=== PATIENT | male | born 2000 | race Caucasian/White ===

== ENCOUNTER 2023-07-15 15:30 | Outpatient (OUT) | payer OTHER, SELFPAY ==
[2023-07-15 16:01] LABS: Basophils Absolute Auto 0.1 10^3/uL (0.0-0.1); Basophils Percent Auto 1.8 % (0.2-2.0); Eosinophils Absolute Auto 0.9 10^3/uL (0.0-0.7); Eosinophils Percent Auto 14.1 % (0.9-7.0); Hemoglobin 15.8 g/dL (14.0-18.0); Immature Granulocytes Abs Auto 0.02 10^3/uL (0.00-0.03); Immature Granulocytes Pct Auto 0.3 % (0.0-0.5); Lymphocytes Absolute Auto 2.2 10^3/uL (1.2-3.8); Lymphocytes Percent Auto 36.7 % (20.5-60.0); Mean Corpuscular HGB Conc 33.6 g/dL (29.9-35.2); Mean Corpuscular Hemoglobin 30.9 pg (25.9-34.0); Mean Platelet Volume 9.1 fL (9.5-13.5); Monocytes Absolute Auto 0.6 10^3/uL (0.3-0.8); Monocytes Percent Auto 9.7 % (1.7-12.0); Neutrophils Absolute Auto 2.3 10^3/uL (1.4-6.5); Neutrophils Percent Auto 37.4 % (43.0-75.0); Platelet Count 328 10^3/uL (150-450); Red Blood Count 5.11 10^6/uL (4.70-6.10); Red Cell Distribution Width 12.7 % (11.0-15.0); White Blood Count 6.1 10^3/uL (4.0-11.0)
[2023-07-15 16:17] LABS: Alanine Aminotransferase 18 U/L (16-63); Albumin Level 4.1 g/dL (3.4-5.0); Alkaline Phosphatase 67 U/L (46-116); Anion Gap 8.7; Aspartate Amino Transferase 14 U/L (15-37); BUN Creatinine Ratio 14.4; Bilirubin Total 0.4 mg/dL (0.2-1.0); Calcium 9.2 mg/dL (8.5-10.1); Carbon Dioxide 32.5 mmol/L (21.0-32.0); Chloride 104 mmol/L (98-107); Chol HDL Ratio 3.3; Cholesterol 161 mg/dL (<=200); Estimated GFR (African America >60 (>=60); Estimated GFR (Non-African Ame >60 (>=60); Globulin 4.2 g/dL; Glucose 82 mg/dL (74-106); HDL Cholesterol 49 mg/dL (40-60); LDL Cholesterol Calculated 104.2 mg/dL; Potassium 4.2 mmol/L (3.5-5.1); Sodium 141 mmol/L (136-145); Total Protein 8.3 g/dL (6.4-8.2); Triglycerides 39 mg/dL (<=150); VLDL CHOLESTEROL 7.8 mg/dL
[2023-07-17 10:13] LABS: QuantiFERON-TB Gold Plus Negative (Negative)
[2023-07-17 11:14] LABS: HBsAg Screen Negative (Negative); HCV Antibody Non Reactive (Non Reactive)
== END 2023-07-15 15:31 | disposition home or self-care (01) ==
LOC: LAB 15:34
PROVIDERS: PCP Family Medicine; Visit Provider Dermatology
DX: L40.0 Psoriasis vulgaris (principal)
CPT/HCPCS: 36415; 80053; 80061; 85025; 86480; 86803; 87340

== ENCOUNTER 2025-01-21 21:19 | Emergency (ER) | payer OTHER, SELFPAY ==
[2025-01-21] VITALS (16 sets, daily range): BP systolic 106–132; BP diastolic 82–97; PULSE 81–145; TEMP 36.8; O2SAT 97–100; BMI 24.4
--- OUTSIDE RECORDS SUMMARY | 2025-01-21 21:32 | XMS_ITS | CCD ---
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 Name Role Phone AMPARO JOSE Primary Care Physician JEANNE ., DARIEL Attending Unavailable JEANNE ., DARIEL Consulting Unavailable JEANNE ., DARIEL Admitting Unavailable PETZNICK, AMPARO Primary Care Unavailable GOVEA ., DR BOYLE Admitting Unavailable PETZNICK, AMPARO Primary Care Unavailable GOVEA ., DR BOYLE Attending Unavailable GOVEA ., DR BOYLE Consulting Unavailable PETZNICK, AMPARO Primary Care Unavailable GOVEA ., DR BOYLE Attending Unavailable GOVEA ., DR BOYLE Consulting Unavailable GOVEA ., DR BOYLE Admitting Unavailable Petznick Amparo MOHAN Primary Care Provider [phone] Petznick DO, Amparo Primary Care Provider [phone] Tupa DOTamar Emergency Provider Amparo Jose Primary Care Unavailable Tamar Villanueva Attending Unavailable TuTamar ellis Admitting Unavailable PETZNICKAMPARO Attending Unavailable WORKGEM PRITCHARD Attending Unavailable GEM GUERRERO Referring Unavailable PETZNICKAMPARO Attending Unavailable PETZNICKAMPARO Referring Unavailable JEANRICK Attending Unavailable PETZNICK, AMPARO Valle Referring Unavailable PETZNICK, AMPARO Valle Attending Unavailable PETZNICK, AMPARO C Referring Unavailable JeanRick T Admitting Unavailable JeanRick Attending Unavailable JeanRick Referring Unavailable Allergies Allergy Classification Reported Allergen(s) Allergy Type Date of Onset Reaction(s) Facility (1 source) No Known Medication Allergies; Translations: [No Known Medication Allergies] Propensity to adverse reactions (disorder) [facility] Repository Medications Current Medications Medication Drug Class(es) Dates Sig (Normalized) Sig (Original) [id number] 200 actuat albuterol 0.09 mg/actuat metered dose inhaler (20 sources) beta2-Adrenergic Agonist Start: 11-14-2024 End: 08-18-2024 take 2 puff(s) by inhalation every six hours for wheezing albuterol HFA 90 mcg/act inhaler Indications: Mild intermittent asthma without complication (HCC) Inhale 2 puffs every 6 (six) hours if needed for wheezing 18 g 2 08/18/2024 Active Start: 12-13-2022 albuterol HFA 90 mcg/act inhaler Indications: Mild intermittent asthma without complication (CMS/HCC) USE 1 INHALATION EVERY 4 TO 6 HOURS NEEDED 25.5 g 3 12/13/2022 Active End: 04-20-2024 take 1 puff(s) by mouth every four to six hours as needed albuterol HFA 90 mcg/act inhaler INHALE 1 PUFF BY MOUTH EVERY 4 TO 6 HOURS NEEDED for 90 days 04/20/2024 Discontinued (Therapy completed) Albuterol (Eqv-ProAir HFA) 90 mcg/inh inhalation aerosol (9 sources) Start: 07-16-2022 Albuterol (Eqv -ProAir HFA) 90 mcg/inh inhalation aerosol Refill(s) 0 Start Date: 07/16/22 Status: Ordered clobetasol propionate 0.5 mg/ml topical solution (6 sources) Corticosteroid Start: 11-17-2024 clobetasol (Te movate) 0.05 % external solution APPLY TO SCALP EVERY SATURDAY - SATURDAY OFF ON THE WEEKENDS NEEDED FOR FLARES 11/17/2024 Active escitalopram 20 mg oral tablet (11 sources) Serotonin Reuptake Inhibitor Start: 07-16-2022 End: 04-20-2024 escitalopram 20 mg Tab Refills(s) 0 Start Date: 07/16/22 Status: Ordered 1 ml ixekizumab 80 mg/ml auto-injector (20 sources) Interleukin-17A Antagonist Start: 12-25-2023 Taltz 80 MG/ML injection Every 5-6 weeks 12/25/2023 Active Start: 07-16-2022 Taltz Autoinje ctor 80 mg/mL subcutaneous solution Refills(s) 0 Start Date: 07/16/22 Status: Ordered End: 04-20-2024 inject 1 mL by subcutaneous injection every other week Ixekizumab (Taltz) 80 MG/ML injection 1 ml Subcutaneous every 2 weeks 04/20/2024 Discontinued (Therapy completed) predniSONE 20 mg oral tablet (3 sources) Start: 04-20-2024 End: 04-29-2024 take 2 tablets by mouth once daily, then take 1 tablet by mouth once daily, then take 0.5 tablet by mouth once daily predniSONE (Deltasone) 20 MG tablet Indications: Left flank pain , Thoracic back pain, unspecified back pain laterality, unspecified chronicity Take 2 tablets (40 mg) by mouth Daily for 3 days, THEN 1 tablet (20 mg) Daily for 3 days, THEN 0.5 tablets (10 mg) Daily for 4 days. 11 tablet 04/20/2024 04/29/2024 Active testosterone cypionate 200 mg/mL IM Patricia (9 sources) Start: 12-19-2022 testosterone c ypionate 200 mg/mL IM Patricia 350 mg, IntraMuscular, q4wk, # 10 mL, Refills(s) 3, Pharmacy: [facility]/pharmacy #[id number], 178, cm, 11/09/22 8:20:00 EDT, Height/Length Dosing, 81.2, kg, 11/09/22 8:20:00 EDT, Weight Dosing Start Date: 12/19/22 Status: Ordered Start: 07-16-2022 testosterone c ypionate 200 mg/mL IM Patricia 300 mg, IntraMuscular, q4wk, # 10 mL, Refills(s) 3, Pharmacy: [facility]/pharmacy #[id number], 178, cm, 07/16/22 11:30:00 EST, Height/Length Dosing, 82, kg, 07/16/22 11:30:00 EST, Weight Dosing Start Date: 07/16/22 Status: Ordered Completed/Discontinued Medications Medication Drug Class(es) Dates Sig (Normalized) Sig (Original) dexamethasone 6 mg oral tablet (2 sources) Corticosteroid Start: 06-04-2022 End: 04-20-2024 dexAMETHasone (Decadron) 6 MG tablet 1 (one) time each day at the same time 06/04/2022 04/20/2024 Discontinued (Therapy completed) hyoscyamine sulfate 0.125 mg sublingual tablet (8 sources) Start: 08-21-2024 take 1 tablet under the tongue three times daily Hyoscyamine Sulfate 0.125 mg tablet, sublingual Active 0.125 MG SUBLINGUAL Three times daily August 21, 2024 1:00am Start: 08-18-2024 End: 12-08-2024 take 1 tablet by mouth three times daily as needed for diarrhea hyoscyamine (Levsin) 0.125 MG SL tablet Indications: Diarrhea of presumed infectious origin TAKE 1 TABLET (125 MCG) BY MOUTH 3 (THREE) TIMES A DAY NEEDED FOR CRAMPING OR DIARRHEA 90 tablet 08/25/2024 12/08/2024 Discontinued (Therapy completed) ondansetron 4 mg disintegrating oral tablet (3 sources) Serotonin-3 Receptor Antagonist Start: 08-21-2024 End: 12-08-2024 ondansetron ODT (Zofran-ODT) 4 MG disintegrating tablet every 6 to 8 hours as needed for Nausea 08/21/2024 12/08/2024 Discontinued (Therapy completed) tadalafil 10 mg oral tablet (9 sources) Phosphodiesterase 5 Inhibitor Start: 11-09-2022 Cialis 10 mg Tab 10 mg = 1 tab(s), Oral, As Directed, PRN for erectile dysfunction, Take 1 tab by mouth one to two hours prior to sexual activity. Do NOT exceed 20 mg in 24 hours., # 30 tab(s), Refills(s) 3, Pharmacy: [facility]/pharmacy #[id number], 178, cm, 11/09/22 8:20:00 EDT, Height/Length Dosing, 81.2, kg, 11/09/22 8:20:00 EDT, Weight Dosing Start Date: 11/09/22 Status: Ordered Start: 07-16-2022 take 1 tablet by rodolfo th every two hours Cialis 5 mg oral tablet See Instructions, Take 1 tab by mouth 2 hours prior to sexual activity., # 15 tab(s), Refills(s) 3, Pharmacy: [facility]/pharmacy #[id number], 178, cm, 07/16/22 11:30:00 EST, Height/Length Dosing, 82, kg, 07/16/22 11:30:00 EST, Weight Dosing Start Date: 07/16/22 Status: Ordered tiZANidine 2 mg oral tablet (6 sources) Central alpha-2 Adrenergic Agonist Start: 04-20-2024 End: 08-18-2024 take 1 tablet by mouth at bedtime tiZANidine (Zanaflex) 2 MG tablet Indications: Left flank pain , Thoracic back pain, unspecified back pain laterality, unspecified chronicity TAKE 1 TABLET BY MOUTH AT BEDTIME 90 tablet 1 05/13/2024 08/18/2024 Discontinued (Therapy completed) Problems Active Problems Problem Classification Problem Date Documented Da te Episodic/Chronic Abdominal pain (2 sources) Left flank pain; Translations: [Unspecified abdominal pain] 04-20-2024 Episodic Anxiety disorders (20 sources) Anxiety; Translations: [Anxiety disorder, unspecified] Onset: 4 07-16-2022 Chronic Asthma (20 sources) Asthma; Translations: [Mild intermittent asthma] Onset: 4 07-16-2022 Chronic Esophageal disorders (16 sources) Gastroesophageal reflux disease; Translations: [Gastro-esophageal reflux disease without esophagitis] Onset: 4 04-20-2024 Chronic Gastrointestinal hemorrhage (1 source) Melena; Translations: [MELENA] Onset: 3 Episodic Immunity disorders (18 sources) Immunosuppression; Translations: [Immunodeficiency, unspecified] Onset: 4 04-20-2024 Chronic Nausea and vomiting (11 sources) Vomiting; Translations: [Vomiting, unspecified] Onset: 5 08-21-2024 Episodic Other aftercare (1 source) Other intermediate accountant (current) drug therapy; Translations: [OTH NURSING HOME CURRENT DRUG THERAPY] Onset: 3 Episodic Other endocrine disorders (7 sources) Testicular hypofunction; Translations: [Testicular hypofunction] Onset: 3 Chronic Other endocrine disorders (9 sources) Male hypogonadism 07-16-2022 Chronic Other endocrine disorders (4 sources) Testicular hypofunction; Translations: [TESTICULAR HYPOFUNCTION] Onset: 3 Chronic Other gastrointestinal disorders (2 sources) Diarrhea of presumed infectious origin; Translations: [Diarrhea, unspecified] 08-18-2024 Episodic Other gastrointestinal disorders (10 sources) Diarrhea; Translations: [Diarrhea, unspecified] Onset: 5 08-21-2024 Episodic Other inflammatory condition of skin (18 sources) Scalp psoriasis; Translations: [Psoriasis, unspecified] Onset: 4 04-20-2024 Chronic Other lower respiratory disease (2 sources) Cough; Translations: [Cough, unspecified type] 08-18-2024 Episodic Other male genital disorders (11 sources) Induratio penis plastica; Translations: [Induration penis plastica] Onset: 3 Chronic Other male genital disorders (20 sources) Male erectile dysfunction, unspecified; Translations: [Erectile dysfunction] Onset: 3 Chronic Other non-traumatic joint disorders (4 sources) Effusion of right knee joint; Translations: [Effusion, right knee] 12-08-2024 Episodic Other non-traumatic joint disorders (6 sources) Pain in right knee; Translations: [Pain in joint, lower leg] 12-08-2024 Episodic Other upper respiratory disease (4 sources) Epistaxis; Translations: [EPISTAXIS] Onset: 3 Episodic Spondylosis; intervertebral disc disorders; other back problems (2 sources) Thoracic back pain; Translations: [Pain in thoracic spine] 04-20-2024 Episodic Sprains and strains (6 sources) Sprain of right knee; Translations: [Sprain of unspecified site of right knee, initial encounter] 12-02-2024 Episodic Past or Other Problems Problem Classification Problem Date Documented Da te Episodic/Chronic Blindness and vision defects (16 sources) Bilateral myopia of eyes; Translations: [Myopia, bilateral] Onset: 04-20-2024 04-20-2024 Episodic Unclassified (2 sources) Acute pain of right knee 12-08-2024 Results Test Name Value Interpretation Reference Range Facility Main OR Intraoperative Recor don 01-19-2025 Main OR Intraoperative Record Main OR Intraoperative Record IntraOp Document Type FT Summary Primary Physician: Rick Jean DO Finalized Date/Time: 01/19/25 11:14:13 Pt. Name: LUX VALLE/Sex: 2000 Male Med Rec #: [id number] Physician: Rick Jean DO Financial #: [id number] Pt. Type: O Room/Bed: Admit/Disch: 01/18/25 08:02:56 - 01/18/25 15:10:50 Institution: Case Times FT Entry 1 Patient Times In Room 01/18/25 10:43:00 Out Room 01/18/25 12:40:00 Procedure Times Start 01/18/25 11:16:00 Stop 01/18/25 12:32:00 Anesthesia Times Start 01/18/25 10:43:00 Stop 01/18/25 12:40:00 Block Timeout w01/18/25 10:30:00 Anesthesia Last Modified By: Kendell GREGORY, Brittany Bennett 01/18/25 12:40:16 General Comments: right adductor canal block by dr dixon, assisted by ana rudd, internal audit senior manager/sa. heart rate 66, spo2 99% on 2lpm o2 via nasal cannula. lupillo morales Case Attendance FT Entry 1 Entry 2 Entry 3 Case Attendee Ramirez LOSS PREVENTION LEAD, Kike Jean DO, Rick Rdz RN, Brittany Bennett Role Performed LOSS PREVENTION LEAD Surgeon - Primary Game Programmer - Primary Time In 01/18/25 10:43:00 01/18/25 11:14:00 01/18/25 10:43:00 Time Out 01/18/25 12:40:00 01/18/25 12:17:00 01/18/25 12:40:00 Procedure KNEE ARTHROSCOPY W/ ACL KNEE ARTHROSCOPY W/ ACL KNEE ARTHROSCOPY W/ ACL REPAIR(Right) REPAIR(Right) REPAIR(Right) Comments DR DIXON SUPERVISING jozef macedo pa-c, out of room for lunch also scrubbed in at at [phone] -[id number] field Last Modified By: Kendell RN, Brittany Rdz RN, Brittany Rdz RN, Brittany Bennett 01/18/25 13:01:48 01/18/25 13:01:48 01/18/25 13:01:48 Entry 4 Entry 5 Entry 6 Case Attendee Tiny SALES MARKETING, Ana Nguyen CST, Carola Lozano Role Performed SALES MARKETING/SA Scrub - Primary Staff - Other Time In 01/18/25 10:43:00 01/18/25 10:43:00 01/18/25 10:43:00 Time Out 01/18/25 12:40:00 01/18/25 12:18:00 01/18/25 12:40:00 Procedure KNEE ARTHROSCOPY W/ ACL KNEE ARTHROSCOPY W/ ACL KNEE ARTHROSCOPY W/ ACL REPAIR(Right) REPAIR(Right) REPAIR(Right) Comments 2ND SCRUB Last Modified By: Kendell RN, Brittany Rdz RN, Brittany Rdz RN, Brittany Bennett 01/18/25 13:01:48 01/18/25 13:01:48 01/18/25 13:01:48 Entry 7 Case Attendee Ken Alfred Ii Role Performed Game Programmer - Relief Time In 01/18/25 11:42:00 Time Out 01/18/25 12:20:00 Procedure KNEE ARTHROSCOPY W/ ACL REPAIR(Right) Comments lunch relief Last Modified By: Brittany Rdz RN 01/18/25 13:01:48 Perioperative Protocols FT Pre-Care Text: Implements protective measures prior to operative or invasive procedure, confirms identity before the operative or invasive procedure, verifies operative procedure, surgical site, and laterality Entry 1 Procedure(s) KNEE ARTHROSCOPY W/ ACL Patient Identity Birthday, ID Band REPAIR(Right) Verified (select at Check, Patient least 2): Participation Consents / H and P Anesthesia Consent, Operative Site Present Verified H&P, Surgery/Procedure Marking Verified Consent Surgical Site Yes Laterality Verified Yes Verified Procedure Verified Yes Correct Patient Yes Position Verified Availability Equipment, Implant, Prep Dry Yes Verified (If Medication Applicable) PreOp Antibiotic Yes Time Out Kike Guzmán CRNA, Given Participants Rick Jean DO, Crosby RN, Tiny Sood SALES MARKETING, Patrick Briones CST, Yamil Ojeda Laura C Time Out Complete 01/18/25 11:14:00 Outcomes Met? Yes Last Modified By: Brittany Rdz RN 01/18/25 11:24:19 Post-Care Text: The patient is free from signs and symptoms of injury caused by extraneous objects Allergy Information FT Pre-Care Text: Verifies allergies Entry 1 Allergies Reviewed? Yes Allergies Reviewed Self/Patient With Outcomes Met? Yes Last Modified By: Brittany Rdz RN 01/18/25 10:18:55 Post-Care Text: The patient received appropriate medication(s) safely administered during the perioperative period Surgical Procedures FT Entry 1 Procedure Description Procedure KNEE ARTHROSCOPY W/ ACL Modifiers Right REPAIR Surgeon Description RIGHT KNEE ARTHROSCOPY WITH ACL RECONSTRUCTION WITH AUTOGRAFT Primary Procedure Yes Primary Surgeon Rick Jean DO Start 01/18/25 11:16:00 Stop 01/18/25 12:32:00 Anesthesia Type General Surgical Service Orthopedics Wound Class 1 - Clean Last Modified By: Brittany Rdz RN 01/18/25 13:01:54 General Case Data FT Pre-Care Text: Classifies surgical wound, implements aseptic technique, initiates traffic control Entry 1 Case Information OR OR 5 FT Case Level Level 4 Wound Class 1 - Clean Specialty Orthopedics ASA Class 2 Preop Diagnosis RIGHT KNEE ACL TEAR Postop Same As Preop Yes Postop Diagnosis RIGHT KNEE ACL TEAR Outcomes Met? Yes Last Modified By: Brittany Rdz RN 01/18/25 11:31:48 Post-Care Text: The patient is free from signs and symptoms of infection Skin Assessment (Pre Procedure) FT Pre-Care Text: Implements protective measures to prevent skin/ tissue injury due to thermal or m (more content not included)... 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 Discharge Activity Ambulate as tolerated, Arrange for a responsible adult supervision for 24 hours, Expect mild pain, Expect minimal amount of drainage and/or bleeding, Partial weight bearing, Do not lift more than 5 lbs Discharge Restrictions No driving, Do not operate machinery or tools, Do not make important decisions for 24 hours, Do not drink alcoholic beverages for 24 hours Discharge Diet(s) Regular, Drink liquids and eat a light meal Call Your Doctor For Persistent or heavy bleeding, Temperature above 101.5 degrees, Redness, swelling, or pus at operative site, Severe pain at the operative site, Persistent vomiting Wound Care Keep incision dry, Remove dressing as instructed Discharge Instructions Discharge Instructions New Follow Up Appointments after Discharge Follow Up with MATTHEW De Jesus When: 01/29/2025 09:00 AM EDT Comments: Keep scheduled appointment Where: [address] [place] [id number] [facility] (1) Medications What How Much When Why Instructions Next Dose New acetaminophen-oxycod one (Percocet 5 mg-325 mg oral tablet) See instructions ACL injury tear Take one to two oral every 4 hours as needed for surgical pain. Pickup at [facility]/pharmacy #[id number] New aspirin (aspirin 325 mg Tab) 1 Tablets By Mouth Every day Duration: 30 Days Start the day after surgery for blood clot prevention. Pickup at [facility]/pharmacy #[id number] Unchanged albuterol (Albuterol (Eqv-ProAir HFA) 90 mcg/ inh inhalation aerosol) 2 Inhalation Inhalation Every 6 hours Unchanged clobetasol topical (clobetasol Top 0.05% Foam) 1 Application Topical 2 times a day psoriasis Unchanged ixekizumab (Taltz Autoinjector 80 mg/ mL subcutaneous solution) 80 Milligram Subcutaneous Every 4 weeks psoriasis Unchanged tadalafil (Cialis 10 mg Tab) 1 Tablets By Mouth As Directed as needed for for erectile dysfunction Take 1 tab by mouth one to two hours prior to sexual activity. Do NOT exceed 20 mg in 24 hours. Pharmacy Information [facility]/pharmacy #[id number]: [address], [place] [phone] Allergies No Known Medication Allergies Education Materials [place], [place] [facility] DISCHARGE INSTRUCTIONS: ANTERIOR CRUCIATE LIGAMENT GRAFT MEDICATIONS You will be given a prescription for pain medication. This should be taken as needed and try to take this with food. Pain medication can cause nausea, constipation, diarrhea, and restlessness and should only be used as needed. When you are able to tolerate Tylenol, this should be used instead. Take Enteric Coated Aspirin 325 mg once daily for three weeks for blood clot prevention if you are over 21 years of age. WOUND CARE Please keep dressing on for two days. Do not soak in the tub or otherwise submerge the incision until vidal are removed. Any increase in pain, temperature or redness should be promptly reported to the office. Reinforce dressing as needed. ACTIVITY You will be given a protocol of the Cruciate Ligament Reconstruction Program and therapy and this should be followed. Physical Therapy will advise you when it is safe to begin walking with crutches, generally this is performed after you obtain good leg strength, unless a meniscus repair has been performed as well. DIET You may begin to progress your regular home diet as tolerated. You should continue to increase fluids for the first two to three days after surgery. ANESTHESIA PRECAUTIONS You should not operate a vehicle (automobile, bicycle, motorcycle), machinery or power tools, make any important decisions or drink alcoholic beverages for 24 hours. You should not consume alcoholic beverages within 12 hours of using you pain medication. DRIVING Driving is legal. But if you are involved in an accident, you must be able to prove that you maintained full control of your vehicle. For this reason, it is advised that you do not drive until your strength returns. Similarly, all sports activities are discouraged, at least until your first p (more content not included)... 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 Refills: 0. aspirin (aspirin 325 mg Tab) 1 Tablets By Mouth every day for 30 Days. Start the day after surgery for blood clot prevention.. Refills: 0. Medications to Continue with No Changes Other Medications albuterol (Albuterol (Eqv-ProAir HFA) 90 mcg/inh inhalation aerosol) 2 Inhalation Inhalation every 6 hours. clobetasol topical (clobetasol Top 0.05% Foam) 1 Application Topical 2 times a day. psoriasis. ixekizumab (Taltz Autoinjector 80 mg/mL subcutaneous solution) 80 Milligram Subcutaneous every 4 weeks. psoriasis. tadalafil (Cialis 10 mg Tab) 1 Tablets By Mouth As Directed as needed for erectile dysfunction. Take 1 tab by mouth one to two hours prior to sexual activity. Do NOT exceed 20 mg in 24 hours.. Refills: 3. Comment: Kierra [facility] Main OR PACU I Recordon Main OR PACU I Record Main OR PACU I Record PACU Phase I Document Type FT Summary Primary Physician: Rick Jean DO Finalized Date/Time: 01/18/25 14:04:29 Pt. Name: LUX VALLE/Sex: 2000 Male Med Rec #: [id number] Physician: Rick Jean DO Financial #: [id number] Pt. Type: O Room/Bed: [facility] Admit/Disch: 01/18/25 08:02:56 - Institution: Case Times PACU I FT Pre-Care Text: Identifies barriers to communication and implements measures to provide psychological support Develops individualized plan of care, and ensures continuity of care Maintains patient's dignity and privacy, and maintains patient confidentiality Identifies and reports philosophical, cultural, and spiritual beliefs and values Identifies individual values and wishes concerning care Implements aseptic technique, and administers prescribed antibiotic therapy and immunizing agents as ordered Evaluates postoperative tissue perfusion Implements thermoregulation measures, and monitors body temperature Evaluates postoperative respiratory status Evaluates postoperative cardiac status Evaluates postoperative neurological status Assesses pain control, collaborated in initiating patient-controlled analgesia and implements alternative methods of pain control Verifies allergies, administers prescribed medications and solutions, evaluates response to medications Entry 1 In PACU I 01/18/25 12:42:00 Discharge from PACU 01/18/25 13:42:00 I Outcomes Met? Yes Last Modified By: Stephany Woody RN 01/18/25 14:04:15 Post-Care Text: The patient demonstrates knowledge of the expected response to the operative or invasive procedure The patient's care is consistent with the individualized perioperative plan of care The patient's right to privacy is maintained The patient's value system, lifestyle, ethnicity, and culture are considered, respected, and incorporated into the perioperative plan of care The patient participates in decisions affecting his or her perioperative plan of care The patient is free from signs and symptoms of infection The patient has wound/tissue perfusion consistent with or improved from baseline levels established preoperatively The patient is at or returning to normothermia at the conclusion of the immediate postoperative period The patient's respiratory function is consistent with or improved from baseline levels established preoperatively The patient's cardiovascular status is consistent with or improved from baseline levels established preoperatively The patient's cardiovascular status is consistent with or improved from baseline levels established preoperatively The patient demonstrates and/or reports adequate pain control throughout the perioperative period The patient received appropriate medication(s), safely administered during the perioperative period Acuity Level PACU I FT Entry 1 Start Time 01/18/25 12:42:00 Stop Time 01/18/25 13:42:00 Acuity Level Acuity Level I Last Modified By: Stephany Woody RN 01/18/25 14:04:27 Finalized By: Stephany Woody RN Document Signatures Signed By: Stephany Woody RN 01/18/25 14:04 Normal [facility] Main OR PACU II Recordon Main OR PACU II Record Main OR PACU II Record PACU Phase II Document Type FT Summary Primary Physician: Rick Jean DO Finalized Date/Time: 01/18/25 15:11:34 Pt. Name: LUX VALLE/Sex: 2000 Male Med Rec #: [id number] Physician: Rick Jean DO Financial #: [id number] Pt. Type: O Room/Bed: Admit/Disch: 01/18/25 08:02:56 - 01/18/25 15:10:50 Institution: Case Times PACU II FT Pre-Care Text: Identifies barriers to communication and implements measures to provide psychological support and determines knowledge level Develops individualized plan of care, and ensures continuity of care Maintains patient's dignity and privacy, and maintains patient confidentiality Identifies and reports philosophical, cultural, and spiritual beliefs and values Identifies individual values and wishes concerning care administers prescribed antibiotic therapy and immunizing agents as ordered, Evaluates postoperative tissue perfusion Implements thermoregulation measures, and monitors body temperature Evaluates postoperative respiratory status Evaluates postoperative cardiac status Evaluates postoperative neurological status Assesses pain control, collaborated in initiating patient-controlled analgesia and implements alternative methods of pain control Verifies allergies, administers prescribed medications and solutions, evaluates response to medications Entry 1 In PACU II 01/18/25 13:50:00 Discharge from PACU 01/18/25 15:10:00 II Outcomes Met? Yes Last Modified By: Zeynep Tellez RN 01/18/25 15:11:33 Post-Care Text: The patient demonstrates knowledge of the expected response to the operative or invasive procedure The patient's care is consistent with the individualized perioperative plan of care The patient's right to privacy is maintained The patient's value system, lifestyle, ethnicity, and culture are considered, respected, and incorporated into the perioperative plan of care The patient participates in decisions affecting his or her perioperative plan of care. The patient is free from signs and symptoms of infection The patient has wound/tissue perfusion consistent with or improved from baseline levels established preoperatively The patient is at or returning to normothermia at the conclusion of the immediate postoperative period The patient's respiratory function is consistent with or improved from baseline levels established preoperatively The patient's cardiovascular status is consistent with or improved from baseline levels established preoperatively The patient's neurological status is consistent with or improved from baseline levels established preoperatively The patient demonstrates and/or reports adequate pain control throughout the perioperative period The patient received appropriate medication(s), safely administered during the perioperative period Finalized By: Zeynep Tellez RN Document Signatures Signed By: Zeynep Tellez RN 01/18/25 15:11 Normal [facility] Main OR Preoperative Recordo n 01-18-2025 Main OR Preoperative Record Main OR Preoperative Record PreOp Document Type FT Summary Primary Physician: Rick Jean DO Finalized Date/Time: 01/18/25 11:33:13 Pt. Name: LUX VALLE/Sex: 2000 Male Med Rec #: [id number] Physician: Rick Jean DO Financial #: [id number] Pt. Type: O Room/Bed: Admit/Disch: 01/18/25 08:02:56 - Institution: Case Times PreOp FT Pre-Care Text: Verifies consent for planned procedure, identifies individual values and wishes concerning care, includes family members in perioperative teaching Entry 1 Patient Times. In Pre Surgery 01/18/25 08:15:00 Out Pre Surgery 01/18/25 10:29:00 Outcomes Met? Yes Last Modified By: Brittany Rdz RN 01/18/25 11:33:12 Post-Care Text: The patient participates in decisions affecting his or her perioperative plan of care Finalized By: Brittany Rdz RN Document Signatures Signed By: Brittany Rdz RN 01/18/25 11:33 Normal [facility] Operative Reporton Operative Report Operative Report Patient: LUX VALLE Age: 24 years Sex: Male : 2000 Associated Diagnoses: None Author: Rick Jean DO Health Status Allergies: Allergic Reactions (Selected) No Known Medication Allergies Impression and Plan Diagnosis Pre-op dx-rt knee acl tear Post-op dx-same Procedure-rt knee auto b-pt-b acl reconstruction Anesthesia-gen block EBL-0 TT-see nn To Recovery Room in stable and satisfactory condition.. 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 LUX VALLE has been given the following list of follow-up instructions, prescriptions, and patient education materials: PATIENT FOLLOW-UP INFORMATION Diet: Regular, Drink liquids and eat a light meal Discharge Activity: Ambulate as tolerated, Arrange for a responsible adult supervision for 24 hours, Expect mild pain, Expect minimal amount of drainage and/or bleeding, Partial weight bearing, Do not lift more than 5 lbs Discharge Restrictions: No driving, Do not operate machinery or tools, Do not make important decisions for 24 hours, Do not drink alcoholic beverages for 24 hours Call Your Doctor For: Persistent or heavy bleeding, Temperature above 101.5 degrees, Redness, swelling, or pus at operative site, Severe pain at the operative site, Persistent vomiting Wound Care Instructions: Keep incision dry, Remove dressing as instructed Additional Instructions: 50% partial weight with brace on until follow up mappt. IF UNABLE TO CONTACT YOUR PHYSICIAN AND YOU FEEL IT IS AN EMERGENCY, GO TO THE NEAREST EMERGENCY ROOM OR CALL 911 IEDELMIRA DAWSON P, have received the attached patient education materials/instructio ns and have verbalized understanding: May we do a follow up call? Yes No I was present when discharge instructions were given Patient Signature Date Clinican/Nurse Signature Date Follow up: With: Address: When: Rick Jean [address] [place] [address] Business (1) Comments: Keep scheduled appointment Pharmacy Information: You may receive a survey from Jovani Coffey asking you to rate your care experience. Your feedback is important and will help us understand what we do well and how we can improve the quality of care we provide to you, your loved ones and our community. It???s an honor to serve you. Thank you for choosing [facility] HERE ARE THE MEDICATION CHANGES THAT OCCURRED DURING YOUR HOSPITAL STAY New Medications [id number], [address], [place] [id number], [phone] acetaminophen-oxycod one (Percocet 5 mg-325 mg oral tablet) Take one to two oral every 4 hours as needed for surgical pain.. Refills: 0. aspirin (aspirin 325 mg Tab) 1 Tablets By Mouth every day for 30 Days. Start the day after surgery for blood clot prevention.. Refills: 0. Medications to Continue with No Changes Other Medications albuterol (Albuterol (Eqv-ProAir HFA) 90 mcg/inh inhalation aerosol) 2 Inhalation Inhalation every 6 hours. clobetasol topical (clobetasol Top 0.05% Foam) 1 Application Topical 2 times a day. psoriasis. ixekizumab (Taltz Autoinjector 80 mg/mL subcutaneous solution) 80 Milligram Subcutaneous every 4 weeks. psoriasis. tadalafil (Cialis 10 mg Tab) 1 Tablets By Mouth As Directed as needed for erectile dysfunction. Take 1 tab by mouth one to two hours prior to sexual activity. Do NOT exceed 20 mg in 24 hours.. Refills: 3. PATIENT EDUCATION INFORMATION Instructions: [place], [place] [facility] DISCHARGE INSTRUCTIONS: ANTERIOR CRUCIATE LIGAMENT GRAFT MEDICATIONS You will be given a prescription for pain medication. This should be taken as needed and try to take this with food. Pain medication can cause nausea, constipation, diarrhea, and restlessness and should only be used as needed. When you are able to tolerate Tylenol, this should be used instead. Take Enteric Coated Aspirin 325 mg once daily for three weeks for blood clot prevention if you are over 21 years of age. WOUND CARE Please keep dressing on for two days. Do not soak in the tub or otherwise submerge the incision until vidal are removed. Any increase in pain, temperature or redness should be promptly reported to the office. Reinforce dressing as needed. ACTIVITY You will be given a protocol of the Cruciate Ligament Reconstruction Program and therapy and this should be followed. Physical Therapy will advise you when it is safe to begin walking with crutches, generally this is performed after you obtain good leg strength, unless a meniscus repair has been performed as well. DIET You may begin to progress your regular home diet as tolerated. You should continue to increase fluids for the first two to three days after (more content not included)... Normal [facility] Proceduralon 01-18-2025 Procedural Procedural Patient: LUX VALLE Age: 24 years Sex: Male : 2000 Associated Diagnoses: None Author: Brent Dixon MD Procedure Nerve Block Block Type: Adductor canal block. Laterality: Right. Informed consent for anesthesia management: Anesthesia options discussed including nerve block, Description of the procedure, risks, benefits, and alternatives was provided, The patient's questions were addressed. Time out: Confirmed correct patient, procedure and site. Time: Date/Time 11/19/2023 10:40:00. Indication: Block for postoperative pain management as requested by surgeon. Anesthesia Method: IV Sedation with monitored anesthesia care, The patient remained awake and able to interact in a meaningful way throughout the procedure. Preparation: The patient was placed in the following position Supine, Continuous pulse oximetry applied, Using maximal sterile barrier technique per current [facility] guidelines including hand hygeine, Guidance (Ultrasound used to identify anatomical landmarks, Using sterile gel and probe covers, Permanent image retained), The site was prepped with ChloraPrep. Procedure: Anesthetic Agent skin/SQ 3cc 2% lido; 21g 100 mm block needle w/ US; 20cc .5% Ropivicaine w/ epi 5mcg/cc in increments; low pressure injection; needle tip visualized throughout, Needle was inserted without pain or parasthesia in the conscious patient, Number of attempts 1, Negative attempt at aspiration for blood, Medial and lateral spread of the anesthestic was observed, Periodic negative attempts at aspiration of blood were made as the local was injected, No pain or parathesia were elicited with injection of the anesthetic in the conscious patient, It was idetified that the correct anesthetic agent was administered to the correct site. Complications: None, The patient tolerated the procedure as expected. [facility] Procedural Procedural Patient: LUX VALLE [facility]: [id number] Age: 24 years Sex: Male : 2000 Associated Diagnoses: None Author: Brent Dixon MD Preoperative Information Anesthesia Preop Info: Time patient last ate or drank 01/18/2025 00:00:00. Anesthesia history: Patient history. Family history+: None. Informed consent: Signed by patient. Including risks, benefits, and alternatives related to the: Anesthetic plan, Postoperative pain management plan. Re-evaluation prior to induction: Brent Dixon MD. Review of Systems Eye Ear/Nose/Mouth/Throa t Respiratory: No shortness of breath, No cough, No wheezing. Cardiovascular: Negative, No chest pain. Gastrointestinal: No heartburn. Musculoskeletal Neurologic Health Status Allergies: Allergic Reactions (Selected) No Known Medication Allergies, Allergies (1) Active Severity Reaction No Known Medication Allergies None Documented Current medications: (Selected) Inpatient Medications Ordered Ecotrin 325 mg Tab-EC: 325 mg = 1 tab(s), Tab-EC, Oral, Daily, Routine, Start date 01/19/25 9:00:00 EDT Lactated Ringers IV Patricia 1000 mL 1,000 mL: 1,000 mL, IV, 125 mL/hr, Routine, Start date 01/18/25 9:45:00 EDT, 8 hour(s), Total volume (mL): 1,000, 78.8 kg, 1.98, m2 Lactated Ringers IV Patricia 1000 mL 1,000 mL: 1,000 mL, IV, 150 mL/hr, Routine, Start date 01/18/25 8:15:00 EDT, 6.7 hour(s), Total volume (mL): 1,000 Zofran 4 mg/2 mL Injection: 4 mg = 2 mL, Injection, IV Push, q4hr PRN Nausea/Vomiting, Routine, Start date 01/18/25 9:45:00 EDT, 01/18/25 9:45:00 EDT acetaminophen-oxycod one 325 mg-5 mg Tab: 1 tab(s), Tab, Oral, q6hr PRN Pain 4-7 for 5 day(s), Stop date 01/23/25 9:44:00 EDT, Routine, Start date 01/18/25 9:45:00 EDT acetaminophen-oxycod one 325 mg-5 mg Tab: 2 tab(s), Tab, Oral, q6hr PRN Pain 4-7 for 5 day(s), Stop date 01/23/25 9:44:00 EDT, Routine, Start date 01/18/25 9:45:00 EDT cefazolin additive + Sodium Chloride 0.9% intravenous solution 50 mL: 2 gm = 1 EA, Powder-Inj, IV Piggyback, PREOP, Routine, Start date 01/18/25 8:15:00 EDT, 100 mL/hr, Infuse over 30 minute(s) morphine 2 mg/mL Inj: 2 mg = 1 mL, Injection, IV Push, q4hr PRN Pain 8-10 for 5 day(s), Stop date 01/23/25 9:44:00 EDT, Routine, Start date 01/18/25 9:45:00 EDT morphine 4 mg/mL Inj: 4 mg = 1 mL, Injection, IV Push, q4hr PRN Pain 8-10 for 5 day(s), Stop date 01/23/25 9:44:00 EDT, Routine, Start date 01/18/25 9:45:00 EDT Prescriptions Prescribed Cialis 10 mg Tab: 10 mg = 1 tab(s), Oral, As Directed, PRN for erectile dysfunction, Take 1 tab by mouth one to two hours prior to sexual activity. Do NOT exceed 20 mg in 24 hours., # 30 tab(s), Refills(s) 3, Pharmacy: [id number], 178, cm, 11/09/22 8:20:00 EDT,... Percocet 5 mg-325 mg oral tablet: See Instructions, 50 tab(s), Refill(s) 0, Take one to two oral every 4 hours as needed for surgical pain., [facility][id number], 180, cm, 01/18/25 8:46:00 EDT, Height/Length Dosing, 78.8, kg, 01/18/25 8:46:00 EDT, Weight Dosing aspirin 325 mg Tab: 325 mg = 1 tab(s), Oral, Daily, Start the day after surgery for blood clot prevention., X 30 day(s), # 30 tab(s), Refills(s) 0, Pharmacy: [facility]/pharmacy #[id number], 180, cm, 01/18/25 8:46:00 EDT, Height/Length Dosing, 78.8, kg, 01/18/25 8:46:00 EDT, Weight D... Documented Medications Documented Albuterol (Eqv-ProAir HFA) 90 mcg/inh inhalation aerosol: 2 inh, Inhalation, q6hr, Refill(s) 0 Taltz Autoinjector 80 mg/mL subcutaneous solution: 80 mg, SubCutaneous, q4wk, psoriasis, Refills(s) 0 clobetasol Top 0.05% Foam: 1 jose david, Topical, BID, 100 gram, Refill(s) 0, psoriasis, Home Medications (6) Active Albuterol (Eqv-ProAir HFA) 90 mcg/inh inhalation aerosol 2 inh, Inhalation, q6hr aspirin 325 mg Tab 325 mg = 1 tab(s), Oral, Daily Cialis 10 mg Tab 10 mg = 1 tab(s), PRN, Oral, As Directed clobetasol Top 0.05% Foam 1 jose david, Topical, BID Percocet 5 mg-325 mg oral tablet See Instructions Taltz Autoinjector 80 mg/mL subcutaneous solution 80 mg, SubCutaneous, q4wk , Medications (9) Active Scheduled: (2) aspirin 325 mg Oral EC Tab [F] 325 mg 1 tab(s), Oral, Daily ceFAZolin + Sodium Chloride 0.9% Minibag 50 mL 2 gm 1 EA, IV Piggyback, PREOP Continuous: (2) Lactated Ringers 1,000 mL 1,000 mL, IV, 125 mL/hr Lactated Ringers 1,000 mL 1,000 mL, IV, 150 mL/hr PRN: (5) acetaminophen-oxyCOD ONE 325 mg-5 mg Tab [F] 1 tab(s), Oral, q6hr acetaminophen-oxyCOD ONE 325 mg-5 mg Tab [F] 2 tab(s), Oral, q6hr morphine 2 mg/mL preservative-free SOLN [F] 2 mg 1 mL, IV Push, q4hr morphine 4 mg/mL preservative-free [F] 4 mg 1 mL, IV Push, q4hr ondansetron 2 mg/mL Inj [F] 4 mg 2 mL, IV Push, q4hr Problem list: All Problems Anxiety / SNOMED CT 07359967 / Confirmed Asthma / SNOMED CT 276847953 / Confirmed Erectile dysfunction / SNOMED CT 3138199058 / Confirmed Hypogonadism male / SNOMED CT 33378172 / Confirmed Peyronie's disease / SNOMED CT 8985986 / Confirmed, Active Problems (5) Anxiety Asthma Erec (more content not included)... Normal [facility] MR KNEE RIGHT WO IV CONTRAST on 12-08-2024 MR KNEE RIGHT WO IV CONTRAST EXAMINATION/TECHNIQU E: MR KNEE RIGHT WO IV CONTRAST HISTORY: Medial and lateral right knee pain. Basketball injury. COMPARISON: None RESULT: MENISCI: Medial Meniscus: Intact Lateral Meniscus: Intact LIGAMENTS: Complete ACL tear. PCL, MCL, and LCL complex appear intact. CARTILAGE: Appears within normal limits. TENDONS: Distal quadriceps intact. Patellar tendon intact. Popliteus intact. BONES AND MARROW: Bone marrow edema involving the lateral femoral condyle and posterior aspect of the medial and lateral tibial plateaus, consistent with pivot shift type contusion. No evidence for fracture. MUSCLES: Muscle bulk and signal intensity are normal. JOINT FLUID AND SYNOVIUM: Small to moderate joint effusion. No synovitis. Trace Dejesus's cyst. OTHER: Subcutaneous edema. IMPRESSION: Complete ACL tear with pivot shift type contusion. ELECTRONICALLY SIGNED BY: Brendan Albarado MD Normal Not Available No Panel Informationon 12-02 Faviola Montague MA 12/09/2024 10:07 AM Splint Application Date/Time: 12/02/2024 12:36 PM Performed by: Faviola Montague MA Authorized by: NELSON Flores Consent: Consent obtained: Verbal and written Consent given by: Patient Risks, benefits, and alternatives were discussed: yes Risks discussed: Discoloration, numbness, swelling and pain Dawson protocol: Imaging studies available: yes Patient identity confirmed: Verbally with patient Procedure details: Location: Knee Knee location: R knee Splint type: Knee immobilizer Attestation: Splint applied and adjusted personally by me Post-procedure details: Procedure completion: Tolerated [facility] No Panel InformationOrdered By: Faviola Montague on 12-02-2024 [facility] XR KNEE 4+ VIEWS RIGHTon XR KNEE 4+ VIEWS RIGHT TITLE OF EXAM: XR KNEE 4+ VIEWS RIGHT REASON FOR EXAM: Right knee pain. TECHNIQUE: 4 radiographs of the right knee COMPARISONS: None. FINDINGS: No fracture. Anatomic alignment of the bones. Morphologically normal osseous structures. No effusion or focal soft tissue abnormality. IMPRESSION: No fracture or dislocation. DICTATED ON: 12/02/2024 10:59 AM This report has been electronically signed and approved by the interpreting radiologist. Normal Not Available XR Knee - right 4 Viewson TITLE OF EXAM: XR KNEE 4+ VIEWS RIGHT REASON FOR EXAM: Right knee pain. TECHNIQUE: 4 radiographs of the right knee COMPARISONS: None. FINDINGS: No fracture. Anatomic alignment of the bones. Morphologically normal osseous structures. No effusion or focal soft tissue abnormality. IMPRESSION: No fracture or dislocation. DICTATED ON: 12/02/2024 10:59 AM This report has been electronically signed and approved by the interpreting radiologist. IMAGING Ga Alvares MD - 12/02/2024 TITLE OF EXAM: XR KNEE 4+ VIEWS RIGHT REASON FOR EXAM: Right knee pain. TECHNIQUE: 4 radiographs of the right knee COMPARISONS: None. FINDINGS: No fracture. Anatomic alignment of the bones. Morphologically normal osseous structures. No effusion or focal soft tissue abnormality. IMPRESSION: No fracture or dislocation. DICTATED ON: 12/02/2024 10:59 AM This report has been electronically signed and approved by the interpreting radiologist. [facility] Study observation (narrative) [facility] XR Knee - right 4 ViewsOrder ed By: Ga Alvares on 12-02-2024 [facility] Work Phone: Alanine aminotransferase [En zymatic activity/volume] in Serum or PlasmaOrdered By: Tamar Villanueva on 08-21-2024 ALT [Catalytic activity/Vol] Alanine aminotransferase [Enzymatic activity/volume] in Serum or Plasma [facility] Albumin [Mass/volume] in Ser um or Plasma by Bromocresol green (BCG) dye binding methoOrdered By: Tamar Villanueva on 08-21-2024 Albumin BCG dye [Mass/Vol] Albumin [Mass/volume] in Serum or Plasma by Bromocresol green (BCG) dye binding metho 3.5-5.7 [facility] Alkaline phosphatase [Enzyma tic activity/volume] in Serum or PlasmaOrdered By: Tamar Villanueva on 08-21-2024 ALP [Catalytic activity/Vol] Alkaline phosphatase [Enzymatic activity/volume] in Serum or Plasma 34-104 [facility] Aspartate aminotransferase [ Enzymatic activity/volume] in Serum or PlasmaOrdered By: Tamar Villanueva on 08-21-2024 AST [Catalytic activity/Vol] Aspartate aminotransferase [Enzymatic activity/volume] in Serum or Plasma 13-39 [facility] Basic Metabolic Panelon 0 Anion gap [Moles/Vol] 8.9 mmol/L Normal 6.0-15.0 [facility] Comment on above: Performed By: #### C BC, LIPASE, BMP, HEPATIC #### [facility] [address] [id number] [place] Calcium [Mass/Vol] 9.4 mg/dL Normal 8.6-10.3 [facility] Comment on above: Performed By: #### C BC, LIPASE, BMP, HEPATIC #### [facility] [address] [id number] [place] Chloride [Moles/Vol] 103 mmol/L Normal 98-107 [facility] Comment on above: Performed By: #### C BC, LIPASE, BMP, HEPATIC #### [facility] [address] [id number] [place] CO2 [Moles/Vol] 26.6 mmol/L Normal 21.0-31.0 [facility] Comment on above: Performed By: #### C BC, LIPASE, BMP, HEPATIC #### [facility] [address] [place] [address] [place] Creatinine [Mass/Vol] 0.90 mg/dL Normal 0.70-1.30 [facility] Comment on above: Performed By: #### C BC, LIPASE, BMP, HEPATIC #### [facility] [address] [id number] [place] Creatinine Clr Calc Pharmacy 128.43 Normal [facility] Comment on above: Performed By: #### C BC, LIPASE, BMP, HEPATIC #### [facility] [address] [place] [address] [place] GFR/1.73 sq M.predicted MDRD (S/P/Bld) [Vol rate/Area] mL/min/{1.73_m2} Normal [facility] Comment on above: Performed By: #### C BC, LIPASE, BMP, HEPATIC #### [facility] [address] Glucose [Mass/Vol] 100 mg/dL Normal 70-100 [facility] Comment on above: Result Comment: [facility] [place] Glucose Reference Range is dependent on time and content of last meal. Glucose of more than 200 mg/dL in a nonstressed, ambulatory subject supports the diagnosis of Diabetes Mellitus. ADA recommended reference range Performed By: #### C BC, LIPASE, BMP, HEPATIC #### [facility] [address] Potassium [Moles/Vol] 3.5 mmol/L Normal 3.5-5.1 [facility] Comment on above: Performed By: #### C BC, LIPASE, BMP, HEPATIC #### [facility] [address] Sodium [Moles/Vol] 135 mmol/L Low 136-145 [facility] Comment on above: Performed By: #### C BC, LIPASE, BMP, HEPATIC #### [facility] [address] Urea nitrogen [Mass/Vol] 12 mg/dL Normal 7-25 [facility] Comment on above: Performed By: #### C BC, LIPASE, BMP, HEPATIC #### [facility] [address] [place] [address] [place] Basophils Auto (Bld) [#/Vol] Ordered By: Tamar Villanueva on 08-21-2024 Basophils (Bld) [#/Vol] Automated basoph il count 0.0-0.2 [facility] Basophils/100 WBC Auto (Bld) Ordered By: Tamar Villanueva on 08-21-2024 Basophils/100 WBC (Bld) Automated basophil % . [facility] Bilirubin.direct [Mass/volum e] in Serum or PlasmaOrdered By: Tamar Villanueva on 08-21-2024 Bilirubin.direct [Mass/Vol] Bilirubin.direct [Mass/volume] in Serum or Plasma High 0.03-0.18 [facility] Bilirubin.total [Mass/volume ] in Serum or PlasmaOrdered By: Tamar Villanueva on 08-21-2024 Bilirubin [Mass/Vol] Bilirubin.total [Mass/volume] in Serum or Plasma 0.3-1.0 [facility] Calcium [Mass/volume] in Ser um or PlasmaOrdered By: Tamar Villanueva on 08-21-2024 Calcium [Mass/Vol] Calcium [Mass/volume] in Serum or Plasma 8.6-10.3 [facility] Carbon dioxide, total [Moles /volume] in Serum or PlasmaOrdered By: Tamar Villanueva on 08-21-2024 CO2 [Moles/Vol] Carbon dioxide, total [Moles/volume] in Serum or Plasma 21.0-31.0 [facility] Chloride [Moles/volume] in S kat or PlasmaOrdered By: Tamar Villanueva on 08-21-2024 Chloride [Moles/Vol] Chloride [Moles/volume] in Serum or Plasma 98-107 [facility] Complete Blood Count Auto Di ffon 08-21-2024 Basophils (Bld) [#/Vol] 0.0 10*3/uL Normal 0.0-0.2 [facility] Comment on above: Result Comment: PERF ORMED BY: [place] [address] PATHOLOGIST WEBSITE DESIGNER NATE JARA M.D. Performed By: #### C BC, LIPASE, BMP, HEPATIC #### [facility] [address] [place] [address] [place] Basophils/100 WBC (Bld) 0.5 % Normal . [facility] tucker [facility] Comment on above: Performed By: #### C BC, LIPASE, BMP, HEPATIC #### [facility] [address] [place] [address] [place] Eosinophils (Bld) [#/Vol] 1.0 10*3/uL High 0.0-0.45 [facility] Comment on above: Performed By: #### C BC, LIPASE, BMP, HEPATIC #### [address] Eosinophils/100 WBC (Bld) 9.9 % Normal . [facility] Comment on above: Performed By: #### C BC, LIPASE, BMP, HEPATIC #### [address] Erythrocyte distribution width (RBC) [Ratio] 12.6 % Normal 12.0-14.8 [facility] Comment on above: Performed By: #### C BC, LIPASE, BMP, HEPATIC #### [address] Hematocrit (Bld) [Volume fraction] 45.0 % Normal 38.8-50.0 [facility] Comment on above: Performed By: #### C BC, LIPASE, BMP, HEPATIC #### [address] Hemoglobin (Bld) [Mass/Vol] 15.4 g/dL Normal 13.0-17.0 [facility] Comment on above: Performed By: #### C BC, LIPASE, BMP, HEPATIC #### [address] Lymphocytes (Bld) [#/Vol] 1.5 10*3/uL Normal 1.00-4.8 [facility] Comment on above: Performed By: #### C BC, LIPASE, BMP, HEPATIC #### [address] Lymphocytes/100 WBC (Bld) 15.9 % Normal . [facility] Comment on above: Performed By: #### C BC, LIPASE, BMP, HEPATIC #### [address] MCH (RBC) [Entitic mass] 30.0 pg Normal 27.5-35.2 [facility] Comment on above: Performed By: #### C BC, LIPASE, BMP, HEPATIC #### [address] MCV (RBC) [Entitic vol] 87.8 fL Normal 83.5-101 [facility] Comment on above: Performed By: #### C BC, LIPASE, BMP, HEPATIC #### [address] Mean Corpuscular HGB Conc 34.2 g/dL Normal 32.5-35.6 [facility] Comment on above: Performed By: #### C BC, LIPASE, BMP, HEPATIC #### [address] Monocytes (Bld) [#/Vol] 1.3 10*3/uL High 0.0-0.8 [facility] Comment on above: Performed By: #### C BC, LIPASE, BMP, HEPATIC #### [address] Monocytes/100 WBC (Bld) 18.33 % Normal 0.00-20.00 [facility] Comment on above: Performed By: #### C BC, LIPASE, BMP, HEPATIC #### [address] Monocytes/100 WBC (Bld) 13.2 % Normal . [facility] Comment on above: Performed By: #### C BC, LIPASE, BMP, HEPATIC #### [address] Neutrophils (Bld) [#/Vol] 5.9 10*3/uL Normal 1.8-7.7 [facility] Comment on above: Performed By: #### C BC, LIPASE, BMP, HEPATIC #### [address] Neutrophils/100 WBC (Bld) 60.5 % Normal . [facility] Comment on above: Performed By: #### C BC, LIPASE, BMP, HEPATIC #### [address] NRBC% 0.1 /100{WBC} Normal 0-0.5 [facility] Comment on above: Performed By: #### C BC, LIPASE, BMP, HEPATIC #### [facility] [address] Platelet mean volume (Bld) [Entitic vol] 6.7 fL Normal 6.6-10.1 [facility] Comment on above: Performed By: #### C BC, LIPASE, BMP, HEPATIC #### [facility] [address] [place] [id number] [facility] Platelets (Bld) [#/Vol] 395 10*3/uL Normal 150-450 [facility] Comment on above: Performed By: #### C BC, LIPASE, BMP, HEPATIC #### [facility] [address] [place] [address] [place] RBC (Bld) [#/Vol] 5.12 10*6/uL Normal 3.90-5.60 [facility] Comment on above: Performed By: #### C BC, LIPASE, BMP, HEPATIC #### [facility] [address] [place] [id number] [place] WBC (Bld) [#/Vol] 9.7 10*3/uL Normal 4.1-10.5 The [facility] Comment on above: Performed By: #### C BC, LIPASE, BMP, HEPATIC #### [facility] [address] Creatinine [Mass/volume] in Serum or PlasmaOrdered By: Tamar Villanueva on 08-21-2024 Creatinine [Mass/Vol] Creatinine [Mass/volume] in Serum or Plasma 0.70-1.30 [facility] Eosinophils Auto (Bld) [#/Vo l]Ordered By: Tamar Villanueva on 08-21-2024 Eosinophils (Bld) [#/Vol] Automated eosinophil count High 0.0-0.45 [facility] Eosinophils/100 WBC Auto (Bl d)Ordered By: Tamar Villanueva on 08-21-2024 Eosinophils/100 WBC (Bld) Automated eosinophil % . [facility] Erythrocyte distribution wid th Auto (RBC) [Ratio]Ordered By: Tamar Villanueva on 08-21-2024 Erythrocyte distribution width (RBC) [Ratio] Erythrocyte distribution width [Ratio] by Automated count 12.0-14.8 [facility] Globulin Calc (S) [Mass/Vol] Ordered By: Tamar Villanueva on 08-21-2024 Globulin (S) [Mass/Vol] Serum globulin measurement by calculation (mass/volume) [facility] Glucose [Mass/volume] in Ser um or PlasmaOrdered By: Tamar Villanueva on 08-21-2024 Glucose [Mass/Vol] Glucose [Mass/volume] in Serum or Plasma 70-100 [facility] Comment on above: ADA recommended refe rence rangeRandom Glucose Reference Range is dependent on time and content of last meal. Glucose of more than 200 mg/dL in a nonstressed, ambulatory subject supports the diagnosis of Diabetes Mellitus. Hematocrit Auto (Bld) [Volum e fraction]Ordered By: Tamar Villanueva on 08-21-2024 Hematocrit (Bld) [Volume fraction] Hematocrit [Volume Fraction] of Blood by Automated count 38.8-50.0 [facility] Hemoglobin [Mass/volume] in BloodOrdered By: Tamar Villanueva on 08-21-2024 Hemoglobin (Bld) [Mass/Vol] Hemoglobin [Mass/volume] in Blood 13.0-17.0 [facility] Hepatic Panelon 08-21-2024 Albumin [Mass/Vol] 4.2 g/dL Normal 3.5-5.7 The [facility] Comment on above: Performed By: #### C BC, LIPASE, BMP, HEPATIC #### [address] Albumin/Globulin [Mass ratio] 1.1 {ratio} Normal [facility] Comment on above: Performed By: #### C BC, LIPASE, BMP, HEPATIC #### [facility] [address] [place] [address] [place] ALP [Catalytic activity/Vol] 43 U/L Normal 34-104 [facility] Comment on above: Performed By: #### C BC, LIPASE, BMP, HEPATIC #### [facility] [address] [place] [id number] [facility] ALT [Catalytic activity/Vol] 18 U/L Normal 7-52 [facility] Comment on above: Performed By: #### C BC, LIPASE, BMP, HEPATIC #### [facility] [address] AST [Catalytic activity/Vol] 19 U/L Normal 13-39 [facility] Comment on above: Performed By: #### C BC, LIPASE, BMP, HEPATIC #### [facility] [address] Bilirubin [Mass/Vol] 0.5 mg/dL Normal 0.3-1.0 [facility] Comment on above: Performed By: #### C BC, LIPASE, BMP, HEPATIC #### [facility] [address] Bilirubin,Indirect 0.3 mg/dL Normal The [facility] Comment on above: Performed By: #### C BC, LIPASE, BMP, HEPATIC #### [address] Bilirubin.indirect [Mass/Vol] 0.20 mg/dL High 0.03-0.18 [facility] Comment on above: Performed By: #### C BC, LIPASE, BMP, HEPATIC #### [address] Globulin (S) [Mass/Vol] 3.7 g/dL Normal T he [facility] Comment on above: Performed By: #### C BC, LIPASE, BMP, HEPATIC #### [address] Protein [Mass/Vol] 7.9 g/dL Normal 6.4-8.9 The [facility] Comment on above: Performed By: #### C BC, LIPASE, BMP, HEPATIC #### [address] Leukocytes [#/volume] correc hannah for nucleated erythrocytes in Blood by Automated counOrdered By: Tamar Villanueva on 08-21-2024 WBC corrected for nucl RBC Auto (Bld) [#/Vol] Leukocytes [#/volume] corrected for nucleated erythrocytes in Blood by Automated coun 4.1-10.5 [facility] Lipaseon 08-21-2024 Lipase [Catalytic activity/Vol] 11.0 U/L Normal 11.0-82.0 [facility] Comment on above: Result Comment: PERF ORMED BY: [facility] [address] [place] [address] PATHOLOGIST WEBSITE DESIGNER NATE JARA M.D. Performed By: #### C BC, LIPASE, BMP, HEPATIC #### [address] Lipase [Enzymatic activity/v olume] in Serum or PlasmaOrdered By: Tamar Villanueva on 08-21-2024 Lipase [Catalytic activity/Vol] Lipase [Enzymatic activity/volume] in Serum or Plasma 11.0-82.0 [facility] Lymphocytes Auto (Bld) [#/Vo l]Ordered By: Tamar Villanueva on 08-21-2024 Lymphocytes (Bld) [#/Vol] Lymphocytes [#/volume] in Blood by Automated count 1.00-4.8 [facility] Lymphocytes/100 WBC Auto (Bl d)Ordered By: Tamar Villanueva on 08-21-2024 Lymphocytes/100 WBC (Bld) Lymphocytes/100 leukocytes in Blood by Automated count . [facility] MCH Auto (RBC) [Entitic mass ]Ordered By: Tamar Villanueva on 08-21-2024 MCH (RBC) [Entitic mass] MCH [Entitic ma ss] by Automated count 27.5-35.2 [facility] MCHC Auto (RBC) [Mass/Vol]Or dered By: Tamar Villanueva on 08-21-2024 MCHC (RBC) [Mass/Vol] MCHC [Mass/volume] by Automated count 32.5-35.6 [facility] MCV Auto (RBC) [Entitic vol] Ordered By: Tamar Villanueva on 08-21-2024 MCV (RBC) [Entitic vol] MCV [Entitic vol ume] by Automated count 83.5-101 [facility] Monocyte distribution width [Entitic volume] in Blood by AutomatedOrdered By: Tamar Villanueva on 08-21-2024 Monocyte distribution width Auto (Bld) [Entitic vol] Monocyte distribution width [Entitic volume] in Blood by Automated 0.00-20.00 [facility] Monocytes Auto (Bld) [#/Vol] Ordered By: Tamar Villanueva on 08-21-2024 Monocytes (Bld) [#/Vol] Automated blood monocyte count High 0.0-0.8 [facility] Monocytes/100 WBC Auto (Bld) Ordered By: Tamar Villanueva on 08-21-2024 Monocytes/100 WBC (Bld) Automated monocyte % . [facility] Neutrophils Auto (Bld) [#/Vo l]Ordered By: Tamar Villanueva on 08-21-2024 Neutrophils (Bld) [#/Vol] Neutrophils [#/volume] in Blood by Automated count 1.8-7.7 [facility] Neutrophils/100 WBC Auto (Bl d)Ordered By: Tamar Villanueva on 08-21-2024 Neutrophils/100 WBC (Bld) Automated neutrophil % . [facility] No Panel InformationOrdered By: Tamar Villanueva on 08-21-2024 Estimated GFR (CKD-EPI) > 60.0 mL/Min [facility] Creatinine Clearance (Chem 128.43 [facility] Nucleated erythrocytes [Pres ence] in Blood by Automated countOrdered By: Tamar Villanueva on 08-21-2024 Nucleated RBC Auto Ql (Bld) Nucleated erythrocytes [Presence] in Blood by Automated count 0-0.5 [facility] Platelet mean volume Auto (B ld) [Entitic vol]Ordered By: Tamar Villanueva on 08-21-2024 Platelet mean volume (Bld) [Entitic vol] Platelet mean volume [Entitic volume] in Blood by Automated count 6.6-10.1 [facility] Platelets Auto (Bld) [#/Vol] Ordered By: Tamar Villanueva on 08-21-2024 Platelets (Bld) [#/Vol] Platelets [#/vol ume] in Blood by Automated count 150-450 [facility] Potassium [Moles/volume] in Serum or PlasmaOrdered By: Tamar Villanueva on 08-21-2024 Potassium [Moles/Vol] Potassium [Moles/volume] in Serum or Plasma 3.5-5.1 [facility] Protein [Mass/volume] in Ser um or PlasmaOrdered By: Tamar Villanueva on 08-21-2024 Protein [Mass/Vol] Protein [Mass/volume] in Serum or Plasma 6.4-8.9 [facility] RBC Auto (Bld) [#/Vol]Ordere d By: Tamar Villanueva on 08-21-2024 RBC (Bld) [#/Vol] Erythrocytes [#/volume] in Blood by Automated count 3.90-5.60 [facility] Serum or plasma albumin/glob ulin mass ratioOrdered By: Tamar Villanueva on 08-21-2024 Albumin/Globulin [Mass ratio] Serum or plasma albumin/globulin mass ratio [facility] Serum or plasma anion gap de terminationOrdered By: Tamar Villanueva on 08-21-2024 Anion gap [Moles/Vol] Serum or plasma anion gap determination 6.0-15.0 [facility] Serum or plasma non-glucuron idated bilirubin measurement (mass/volume)Ordered By: Tamar Villanueva on 08-21-2024 Bilirubin.indirect [Mass/Vol] Serum or plasma non-glucuronidated bilirubin measurement (mass/volume) [facility] Sodium [Moles/volume] in Ser um or PlasmaOrdered By: Tamra Villanueva on 08-21-2024 Sodium [Moles/Vol] Sodium [Moles/volume] in Serum or Plasma Low 136-145 [facility] Urea nitrogen [Mass/volume] in Serum or PlasmaOrdered By: Tamar Villanueva on 08-21-2024 Urea nitrogen [Mass/Vol] Urea nitrogen [Mass/volume] in Serum or Plasma 7-25 [facility] WBC Auto (Bld) [#/Vol]Ordere d By: Tamar Villanueva on 08-21-2024 WBC (Bld) [#/Vol] Leukocytes [#/volume] in Blood by Automated count 4.1-10.5 [facility] - Microbiology an d Antimicrobial susceptibilityon 08-18-2024 SARS-CoV-2 (COVID-19) RNA DICK+probe Ql (Unsp spec) Negative [facility] No Panel Informationon 08-18 FLU A Negative [facility] FLU B Negative [facility] Interpretation and review of laboratory results Normal [facility] XR ABDOMEN 1 VIEWon 04-20-20 24 XR ABDOMEN 1 VIEW XR ABDOMEN 1 VIEW Clinical History: Mid back pain. Nausea. Reference Exam: None Findings: The abdominal bowel gas pattern is nonobstructive. No mass, organomegaly, or suspicious calcification. Right hemipelvic phleboliths. Negative for free intraperitoneal air. The skeleton is unremarkable. Impression: Negative for intestinal stasis or other acute intra-abdominal pathology detected by routine radiographic assessment. Dictated on: 04/22/2024 10:35 AM This report has been electronically signed and approved by the interpreting Radiologist. Normal Not Available XR THORACIC SPINE 3 VIEWSon 04-20-2024 XR THORACIC SPINE 3 VIEWS Exam: XR THORACIC SPINE 3 VIEWS Clinical History: Mid back pain. Reference Exam: No comparison FINDINGS: Imaging findings: Thoracic vertebral elemental height, contour, and alignment is anatomic. The disc spaces are fairly well-maintained. Negative for fracture or subluxation. The pedicles are not splayed. No paraspinal soft tissue abnormality. Impression: Negative routine radiographic assessment of the thoracic spine. Dictated on: 04/22/2024 9:16 AM This report has been electronically signed and approved by the interpreting Radiologist. Normal Not Available TESTOSTERONE, TOTALon 2022 Testosterone [Mass/Vol] 361 ng/dL Normal 264-916 [facility] Comment on above: Result Comment: Adul t male reference interval is based on a population of healthy nonobese males (BMI <30) between 19 and 39 years old. Waqar, et.al. JCEM 2017,102;8596-7875. PMID: [id number]. Performed By: #### T ESTTOT #### [facility] [address] [place] [address] Dr. Юлия Dobbins CBC AUTO DIFFon 08-29-2022 BASO # 0.1 103/ul Normal 0.0-0.1 [facility] Comment on above: Performed By: #### C BC #### [facility] [address] [place] [address] Dr. Юлия Dobbins Basophils/100 WBC (Bld) 1.1 % Normal 0.2-2.0 [facility] Comment on above: Performed By: #### C BC #### [facility] [address] [place] [address] Dr. Юлия Dobbins EO # 0.5 103/ul Normal 0.0-0.7 [facility] Comment on above: Performed By: #### C BC #### [facility] [address] [place] [address] Dr. Юлия Dobbins Eosinophils/100 WBC (Bld) 5.2 % Normal 0.9-7.0 [facility] Comment on above: Performed By: #### C BC #### [facility] [address] [place] [address] Dr. Юлия Dobbins Erythrocyte distribution width (RBC) [Ratio] 12.7 % Normal 11.0-15.0 [facility] Comment on above: Performed By: #### C BC #### [facility] [address] [place] [address] Dr. Юлия Dobbins Hematocrit (Bld) [Volume fraction] 45.3 % Normal 42.0-54.0 [facility] Comment on above: Performed By: #### C BC #### [facility] [address] [place] [address] Dr. Юляи Dobbins Hemoglobin (Bld) [Mass/Vol] 15.2 g/dL Normal 14.0-18.0 [facility] Comment on above: Performed By: #### C BC #### [facility] [address] [place] [address] Dr. Юлия Dobbins IG # 0.03 10e3/ul Normal 0.00-0.03 [facility] Comment on above: Performed By: #### C BC #### [facility] [address] [place] [address] Dr. лЮия Dobbins IG % 0.3 % Normal 0.0-0.5 [facility] Comment on above: Performed By: #### C BC #### [facility] [address] [place] [address] Dr. Юлия Dobbins LYMPH # 2.5 103/ul Normal 1.2-3.8 [facility] Comment on above: Performed By: #### C BC #### [facility] [address] [place] [address] Dr. Юлия Dobbins Lymphocytes/100 WBC (Bld) 25.5 % Normal 20.5-60.0 [facility] Comment on above: Performed By: #### C BC #### [facility] [address] [place] [address] Dr. Юлия Dobbins MANUAL DIFF REQ NO Normal [facility] Comment on above: Performed By: #### C BC #### [facility] [address] [place] [address] Dr. Юлия Dobbins MCH (RBC) [Entitic mass] 30.6 pg Normal 25.9-34.0 [facility] Comment on above: Performed By: #### C BC #### [facility] [address] [place] [address] Dr. Юлия Dobbins MCHC (RBC) [Mass/Vol] 33.6 g/dL Normal 29.9-35.2 [facility] Comment on above: Performed By: #### C BC #### [facility] [address] [place] [address] Dr. Юлия Dobbins MCV (RBC) [Entitic vol] 91.1 fL Normal 80.0-94.0 [facility] Comment on above: Performed By: #### C BC #### [facility] [address] [place] [address] Dr. Юлия Dobbins MONO # 0.8 103/ul Normal 0.3-0.8 [facility] Comment on above: Performed By: #### C BC #### [facility] [address] [place] [address] Dr. Юлия Dobbins Monocytes/100 WBC (Bld) 8.3 % Normal 1.7-12.0 [facility] Comment on above: Performed By: #### C BC #### [facility] [address] [place] [address] Dr. Юлия Dobbins NEUT # 5.8 103/ul Normal 1.4-6.5 [facility] Comment on above: Performed By: #### C BC #### [facility] [address] [place] [address] Dr. Юлия Dobbins Neutrophils/100 WBC (Bld) 59.6 % Normal 43.0-75.0 [facility] Comment on above: Performed By: #### C BC #### [facility] [address] [place] [address] Dr. Юлия Dobbins Platelet mean volume (Bld) [Entitic vol] 8.9 fL Critically low 9.5-13.5 [facility] Comment on above: Performed By: #### C BC #### [facility] [address] [place] [address] Dr. Юлия Dobbins PLT 347 103/ul Normal 150-450 [facility] Comment on above: Performed By: #### C BC #### [facility] [address] [place] [address] Dr. Юлия Dobbins RBC 4.97 106/ul Normal 4.70-6.10 [facility] Comment on above: Performed By: #### C BC #### [facility] [address] [place] [address] Dr. Юлия Dobbins WBC 9.7 103/ul Normal 4.0-11.0 [facility] Comment on above: Performed By: #### C BC #### [facility] [address] [place] [address] Dr. Юлия Dobbins OCC BLD IMMUNO SCREENon 08-15 OCCULT BLOOD Negative Normal NEGATIVE [facility] Comment on above: Performed By: #### O BSCRN #### [facility] [address] [place] [address] Dr. Юлия Dobbins PROTIMEon 08-29-2022 INR Coag (PPP) [Relative time] 1.03 {INR} Normal [facility] Comment on above: Performed By: #### P T, PTT #### [facility] [address] [place] [address] Dr. Юлия Dobbins INR GUIDELINES SEE BELOW Normal [facility] Comment on above: Result Comment: JOSSUE RED INR: 2.0 - 3.0 CONDITIONS NOT LISTED BELOW 2.5 - 3.5 FOR PROSTHETIC HEART VALVE REPLACEMENT 2.5 - 3.5 RECURRENT THROMBOSIS Performed By: #### P T, PTT #### [facility] [address] [place] [address] Dr. Юлия Dobbins PT Coag (PPP) [Time] 10.9 s Normal 9.0-11.6 [facility] Comment on above: Performed By: #### P T, PTT #### [facility] [address] [address] [address] Юлия Dobbins PTTon 08-29-2022 aPTT Coag (Bld) [Time] 29.7 s Normal 22.3-36.2 [facility] Comment on above: Performed By: #### P T, PTT #### [facility] [address] [address] [address] Юлия Dobbins PROLACTINon 07-24-2022 Prolactin 6.1 ng/mL Normal 4.0-15.2 [facility] Comment on above: Performed By: #### P ROLAC #### [facility] [address] [address] [address] Юлия Dobbins TESTOSTERONE, TOTALon 2022 Testosterone [Mass/Vol] 235 ng/dL Critically low 264-916 [facility] Comment on above: Result Comment: Adul t male reference interval is based on a population of healthy nonobese males (BMI <30) between 19 and 39 years old. Waqar, et.al. JCEM 2017,102;2737-1851. PMID: [id number]. Performed By: #### T ESTTOT #### [facility] [address] [place] [address] Dr. Юлия Dobbins XR Chest 2 Views*on 06-04-20 XR Chest 2 Views* CLINICAL HISTORY: Cough, wheezing and shortness of breath for a few months. History of asthma. COMPARISON: None available. TECHNIQUE: PA and lateral radiographs of the chest were obtained. FINDINGS: There is no significant pulmonary infiltrate, cardiomegaly, vascular congestion, pleural effusion, pneumothorax, or other findings of concern identified. IMPRESSION: NO EVIDENCE OF ACTIVE CARDIOPULMONARY DISEASE. Report reported and signed by Mook Eric on 06/04/2022 1547 Normal [facility] Clinical Specialist Medical Device Vital Signs Date Time Vital Sign Value Performing Clinician Facility 01-05-2025 08:04-0400 Body height 177.8 cm Rick Jean DO Work Phone: [facility] 01-05-2025 08:04-0400 Body mass index (BMI) [Ratio] 25.68 kg/m2 Rick Jean DO Work Phone: [facility] 01-05-2025 08:04-0400 Body weight 81.19 kg Rick Jean DO Work Phone: [facility] 12-08-2024 14:36-0400 Body height 177.8 cm Amparo Jose DO Work Phone: [facility] 12-08-2024 14:36-0400 Body mass index (BMI) [Ratio] 25.68 kg/m2 Amparo Jose DO Work Phone: [facility] 12-08-2024 14:36-0400 Body temperature 98.29 [degF] Amparo Jose DO Work Phone: [facility] 12-08-2024 14:36-0400 Body weight 81.19 kg Amparo Jose DO Work Phone: [facility] 12-08-2024 14:36-0400 Diastolic blood pressure 84 mm[Hg] Amparo Jose DO Work Phone: [facility] 12-08-2024 14:36-0400 Heart rate 60 /min Amparo Jose DO Work Phone: [facility] 12-08-2024 14:36-0400 SaO2% (BldA) [Mass fraction] 97 % Amparo Jose DO Work Phone: [facility] 12-08-2024 14:36-0400 Systolic blood pressure 128 mm[Hg] Amparo Jose DO Work Phone: [facility] 12-02-2024 11:41-0400 Body temperature 96.91 [degF] Summer Workman PA Work Phone: [facility] 12-02-2024 11:41-0400 Diastolic blood pressure 72 mm[Hg] Summer Workman PA Work Phone: [facility] 12-02-2024 11:41-0400 Heart rate 80 /min Summer Workman PA Work Phone: [facility] 12-02-2024 11:41-0400 SaO2% (BldA) [Mass fraction] 99 % Summer Workman PA Work Phone: [facility] 12-02-2024 11:41-0400 Systolic blood pressure 144 mm[Hg] Summer Workman PA Work Phone: [facility] 08-21-2024 12:27-0500 Body temperature 97.7 [degF] Amparo Petznick DO Work Phone: [facility] 08-21-2024 12:27-0500 Diastolic blood pressure 81 mm[Hg] Amparo Petznick DO Work Phone: [facility] 08-21-2024 12:27-0500 Heart rate 63 /min Amparo Petznick DO Work Phone: [facility] 08-21-2024 12:27-0500 Respiratory rate 18 /min Amparo Petznick DO Work Phone: [facility] 08-21-2024 12:27-0500 SaO2% (BldA) [Mass fraction] 97 % Amparo Petznick DO Work Phone: [facility] 08-21-2024 12:27-0500 Systolic blood pressure 126 mm[Hg] Amparo Petznick DO Work Phone: [facility] 08-21-2024 09:42-0500 Body height 177.8 cm Amparo Petznick DO Work Phone: [facility] 08-21-2024 09:42-0500 Body weight 78 kg Amparo Petznick DO Work Phone: [facility] 08-18-2024 09:09-0500 Body height 177.8 cm Amparo Petznick DO Work Phone: [facility] 08-18-2024 09:09-0500 Body mass index (BMI) [Ratio] 25.25 kg/m2 Amparo Petznick DO Work Phone: [facility] 08-18-2024 09:09-0500 Body temperature 99.9 [degF] Amparo Petznick DO Work Phone: [facility] 08-18-2024 09:09-0500 Body weight 79.83 kg Amparo Petznick DO Work Phone: [facility] 08-18-2024 09:09-0500 Diastolic blood pressure 72 mm[Hg] Amparo Petznick DO Work Phone: [facility] 08-18-2024 09:09-0500 Heart rate 116 /min Amparo Petznick DO Work Phone: [facility] 08-18-2024 09:09-0500 SaO2% (BldA) [Mass fraction] 98 % Amparo Petznick DO Work Phone: [facility] 08-18-2024 09:09-0500 Systolic blood pressure 114 mm[Hg] Amparo Petznick DO Work Phone: [facility] 04-20-2024 14:32-0500 Body height 177.8 cm Amparo Petznick DO Work Phone: [facility] 04-20-2024 14:32-0500 Body mass index (BMI) [Ratio] 25.4 kg/m2 Amparo Petznick DO Work Phone: [facility] 04-20-2024 14:32-0500 Body temperature 98.1 [degF] Amparo Petznick DO Work Phone: [facility] 04-20-2024 14:32-0500 Body weight 80.29 kg Amparo Petznick DO Work Phone: [facility] 04-20-2024 14:32-0500 Diastolic blood pressure 66 mm[Hg] Amparo Petznick DO Work Phone: [facility] 04-20-2024 14:32-0500 Heart rate 77 /min Amparo Petznick DO Work Phone: [facility] 04-20-2024 14:32-0500 SaO2% (BldA) [Mass fraction] 98 % Amparo Petznick DO Work Phone: [facility] 04-20-2024 14:32-0500 Systolic blood pressure 124 mm[Hg] Amparo Jose DO Work Phone: [facility] 11-09-2022 08:13-0400 Blood Pressure Location Tamar GOVEA [facility] 11-09-2022 08:13-0400 Diastolic blood pressure 86 mm[Hg] Tamar GOVEA [facility] 11-09-2022 08:13-0400 Heart rate 80 /min Tamar GOVEA [facility] 11-09-2022 08:13-0400 Respiratory rate 16 /min Tamar GOVEA [facility] 11-09-2022 08:13-0400 Systolic blood pressure 132 mm[Hg] Tamar GOVEA [facility] 07-16-2022 11:25-0500 Blood Pressure Location Tamar GOVEA [facility] 07-16-2022 11:25-0500 Diastolic blood pressure 81 mm[Hg] Tamar GOVEA [facility] 07-16-2022 11:25-0500 Heart rate 72 /min Tamar GOVEA [facility] 07-16-2022 11:25-0500 Respiratory rate 16 /min Tamar GOVEA [facility] 07-16-2022 11:25-0500 Systolic blood pressure 132 mm[Hg] Tamar GOVEA [facility] Encounters Encounter Date Encounter Type Care Provider Facility Start: 01-18-2025 End: 01-18-2025 ambulatory Rick Walter Jean [facility] Start: 01-05-2025 End: 01-05-2025 Bamboo flowsheet Rick Jean DO Work Phone: [facility] Start: 01-05-2025 End: 01-05-2025 Bamboo flowsheet Rick Jean DO Work Phone: [facility] Start: 01-05-2025 End: 01-05-2025 ambulatory RICK JEAN Not Available Start: 01-05-2025 End: 01-05-2025 Patient encounter procedure Rick Jean DO Work Phone: [facility] Comment on above: Rupture of anterior cruciate ligament of right knee, subsequent encounter (Primary Dx); Acute pain of right knee; New tear of anterior cruciate ligament of right knee, initial encounter Start: 12-21-2024 End: 12-21-2024 Telephone encounter Amparo Valle Carolyne DO Work Phone: [facility] Comment on above: Results Start: 12-17-2024 End: 12-17-2024 ambulatory AMPARO MARINELLIICK Not Available Start: 12-08-2024 End: 12-08-2024 ambulatory AMPARO Valle PETZNICK Not Available Start: 12-08-2024 End: 12-08-2024 Office outpatient visit 25 minutes Amparotono Gayznick DO Work Phone: [facility] Comment on above: Effusion of bursa of right knee (Primary Dx); Acute pain of right knee Start: 12-08-2024 End: 12-08-2024 Bamboo flowsheet Amparo Valle Petznick DO Work Phone: [facility] Start: 12-08-2024 End: 12-08-2024 Bamboo flowsheet Amparo Valle Petznick DO Work Phone: [facility] Start: 12-04-2024 End: 12-08-2024 Telephone encounter Alecia Roberto MA [facility] Start: 12-02-2024 End: 12-02-2024 ambulatory GEM Peoples WORKMACHO Not Available Start: 12-02-2024 End: 12-02-2024 Office outpatient visit 25 minutes Gem Guerrero NELSON Work Phone: [facility] Comment on above: Sprain of right knee , unspecified ligament, initial encounter (Primary Dx); Acute pain of right knee Start: 08-21-2024 End: 08-21-2024 Emergency department patient visit Amparo Gayznick DO Work Phone: [facility] Work Phone: Start: 08-18-2024 End: 08-18-2024 Bamboo flowsheet Amparo Valle Petznick DO Work Phone: [facility] Start: 08-18-2024 End: 08-18-2024 Bamboo flowsheet Amparo Valle Petznick DO Work Phone: [facility] Start: 08-18-2024 End: 08-18-2024 Office outpatient visit 15 minutes Amparo Valle Petznick DO Work Phone: [facility] Comment on above: Diarrhea of presumed infectious origin (Primary Dx); Cough, unspecified type; Mild intermittent asthma without complication (CMS/HCC); Immunosuppression (CMS/HCC); Psoriasis of scalp (CMS/HCC) Start: 08-18-2024 End: 08-18-2024 ambulatory AMPARO Valle PETZNICK Not Available Start: 04-22-2024 End: 04-22-2024 Telephone encounter Amparo Valle Petznick DO Work Phone: [facility] Start: 04-20-2024 End: 04-20-2024 ambulatory AMPARO Valle PETZNICK Not Available Start: 04-20-2024 End: 04-20-2024 Office outpatient visit 25 minutes Amparo Valle Petznick DO Work Phone: [facility] Comment on above: Left flank pain (Sue manny Dx); Thoracic back pain, unspecified back pain laterality, unspecified chronicity Start: 07-01-2023 End: 07-01-2023 Patient encounter procedure Tamar GOVEA [facility] Start: 04-09-2023 End: 04-09-2023 Patient encounter procedure BERTRAND HARE [facility] [employer] Start: 02-13-2023 End: 02-13-2023 Patient encounter procedure BERTRAND HARE [facility] Start: 01-15-2023 End: 01-15-2023 Patient encounter procedure BERTRAND HRAE [facility] [employer] Start: 12-19-2022 End: 12-19-2022 Patient encounter procedure Tamar GOVEA [facility] [employer] Start: 11-09-2022 End: 11-09-2022 Patient encounter procedure Tamar GOVEA [facility] [employer] Start: 10-22-2022 End: 10-23-[address] TAMAR GOVEA . Facility:[facility] Start: 10-08-2022 End: 10-08-2022 Patient encounter procedure VILMA GOVEA [facility] [employer] Start: 08-31-2022 End: 08-31-2022 Patient encounter procedure Tamar GOVEA [facility] Start: 08-29-2022 End: 08-29-2022 ambulatory DARIEL ANGEL . Facility:[facility] Start: 07-23-2022 End: 07-24-2022 ambulatory AMPARO JOSE Facility:[facility] Start: 07-16-2022 End: 07-16-2022 Patient encounter procedure Tamar GOVEA [facility] Procedures Date Procedure Procedure Detail Performing Clinician Start: 12-02-2024 ED SPLINTING / CASTI NG / STRAPPING Faviola Veramina SANDS Start: 12-02-2024 Radiologic exam knee complete 4/more views Gem M Claireman NELSON Work Phone: Start: 08-18-2024 STATUS COVID-19/FLU Mat vale Jose DO Work Phone: Plan of Treatment Date Care Activity Detail Author Start: 02-15-2025 Influenza vaccination [facility] Start: 08-21-2024 [facility] Start: 08-18-2024 End: 08-18-2024 Patient encounter procedure 08/18/2024 9:15 AM EST Office Visit [facility] [address] [place] [address] Amparo Jose, DO [address] [place] [address] Arrived [facility] Comment on above: Arrived Start: 04-20-2024 End: 04-20-2025 XR Abdomen Single view [facility] [email or web address] Work Phone: Comment on above: Expected: 04/20/2024 , Expires: 04/20/2025 Start: 02-16-2024 Influenza vaccination Influenza Vacc ine (#1) [facility] MR Knee - right WO contrast MR knee right wo IV contrast Imaging Routine Effusion of bursa of right knee Acute pain of right knee Ordered: 12/08/2024 [facility] [email or web address] Work Phone: Comment on above: Ordered: 12/08/2024 Patient Education Diarrhea in ad ults - ED discharge instructions Nausea and vomiting in adults - ED discharge instructions [facility] Work Phone: Patient referral [facility] Work Phone: XR Thoracic spine 3 Views XR thoracic spine 3 views Imaging Routine Thoracic back pain, unspecified back pain laterality, unspecified chronicity 04/20/2024 3:31 PM EST [facility] Immunizations Immunization Date Immunization Notes Care Provider Ester hunter 03-16-2013 influenza virus vacc ine, unspecified formulation Amparo Jose DO Work Phone: [facility] Payers Date Payer Category Payer Self-pay 2024 Private Health Insurance [id number] 2023 Private Health Insurance [id number] 2023 Private Health Insurance [id number] 1998 Unknown [id number] 1998 Unknown [id number] 1998 Unknown [id number] 1998 Unknown [id number] 9 1998 Unknown [id number] [id number] 9 1998 Unknown [id number] [id number] 9 1998 Unknown [id number] [id number] 9 1998 Unknown [id number] [id number] 9 1998 Unknown [id number] [id number] 9 1998 Unknown [id number] [id number] 9 1998 Unknown [id number] [id number] 9 1998 Unknown [id number] [id number] 1959 Unknown [id number] Unknown Rishi BC/BS [id number] Unknown HCAP/HFA/FAP Active [id number] Unknown [id number] Social History Date Type Detail Facility Start: 07-16-2022 End: 04-20-2024 Tobacco smoking status Never smoked tobacco (finding) [facility] Start: 04-20-2024 End: 12-08-2024 Sex Assigned At Male [facility] Start: 04-20-2024 Tobacco use and exposure Smokeless tobacco non-user [facility] Start: 04-20-2024 End: 01-05-2025 Alcoholic beverage intake Ex-drinker (finding) [facility] Start: 04-20-2024 End: 12-08-2024 History of Social function [facility] Start: 04-20-2024 Alcohol Comment 5 or 6 drinks once a month [facility] Start: 2000 Sex assigned at Not on file [facility] Start: 08-21-2024 Tobacco smoking stat [facility] Smoker (finding) [facility] Start: 08-21-2024 Sex Male (finding) [facility] Start: 2000 Sex Assigned At Male [facility] Functional Status Date Assessment Result Facility 12-08-2024 Patient Health Quest ionnaire 2 item (PHQ-2) [Reported] [facility] 11-09-2022 Functional Status N/A [facility] 07-16-2022 Functional Status N/A [facility] Clinical Notes 07-16-2022 to 01-18-2025 Loli Hyatt - 01/05/2025 8:00 AM EDTTelephone Encounter - Dania Marshall - 12/21/2024 2:02 PM EDTTelephone Encounter - Dania Marshall - 12/21/2024 2:02 PM EDT Note Date & Type Note Facility 01-18-2025 Note Progress Note-Rishabh montalvo Patient: LUX VALLE Age: 24 years Sex: Male : 2000 Associated Diagnoses: None Author: Brent Dixon MD Preoperative Information Anesthesia Preop Info: Time patient last ate or drank 01/18/2025 00:00:00. Anesthesia history: Patient history. Family history+: None. Informed consent: Signed by patient. Including risks, benefits, and alternatives related to the: Anesthetic plan, Postoperative pain management plan. Re-evaluation prior to induction: Brent Dixon MD. Review of Systems Eye Ear/Nose/Mouth/Throat Respiratory: No shortness of breath, No cough, No wheezing. Cardiovascular: Negative, No chest pain. Gastrointestinal: No heartburn. Musculoskeletal Neurologic Health Status Allergies: Allergic Reactions (Selected) No Known Medication Allergies, Allergies (1) Active Severity Reaction No Known Medication Allergies None Documented Current medications: (Selected) Inpatient Medications Ordered Ecotrin 325 mg Tab-EC: 325 mg = 1 tab(s), Tab-EC, Oral, Daily, Routine, Start date 01/19/25 9:00:00 EDT Lactated Ringers IV Patricia 1000 mL 1,000 mL: 1,000 mL, IV, 125 mL/hr, Routine, Start date 01/18/25 9:45:00 EDT, 8 hour(s), Total volume (mL): 1,000, 78.8 kg, 1.98, m2 Lactated Ringers IV Patricia 1000 mL 1,000 mL: 1,000 mL, IV, 150 mL/hr, Routine, Start date 01/18/25 8:15:00 EDT, 6.7 hour(s), Total volume (mL): 1,000 Zofran 4 mg/2 mL Injection: 4 mg = 2 mL, Injection, IV Push, q4hr PRN Nausea/Vomiting, Routine, Start date 01/18/25 9:45:00 EDT, 01/18/25 9:45:00 EDT acetaminophen-oxycodone 325 mg-5 mg Tab: 1 tab(s), Tab, Oral, q6hr PRN Pain 4-7 for 5 day(s), Stop date 01/23/25 9:44:00 EDT, Routine, Start date 01/18/25 9:45:00 EDT acetaminophen-oxycodone 325 mg-5 mg Tab: 2 tab(s), Tab, Oral, q6hr PRN Pain 4-7 for 5 day(s), Stop date 01/23/25 9:44:00 EDT, Routine, Start date 01/18/25 9:45:00 EDT cefazolin additive + Sodium Chloride 0.9% intravenous solution 50 mL: 2 gm = 1 EA, Powder-Inj, IV Piggyback, PREOP, Routine, Start date 01/18/25 8:15:00 EDT, 100 mL/hr, Infuse over 30 minute(s) morphine 2 mg/mL Inj: 2 mg = 1 mL, Injection, IV Push, q4hr PRN Pain 8-10 for 5 day(s), Stop date 01/23/25 9:44:00 EDT, Routine, Start date 01/18/25 9:45:00 EDT morphine 4 mg/mL Inj: 4 mg = 1 mL, Injection, IV Push, q4hr PRN Pain 8-10 for 5 day(s), Stop date 01/23/25 9:44:00 EDT, Routine, Start date 01/18/25 9:45:00 EDT Prescriptions Prescribed Cialis 10 mg Tab: 10 mg = 1 tab(s), Oral, As Directed, PRN for erectile dysfunction, Take 1 tab by mouth one to two hours prior to sexual activity. Do NOT exceed 20 mg in 24 hours., # 30 tab(s), Refills(s) 3, Pharmacy: [facility]/pharmacy #[id number], 178, cm, 11/09/22 8:20:00 EDT,... Percocet 5 mg-325 mg oral tablet: See Instructions, 50 tab(s), Refill(s) 0, Take one to two oral every 4 hours as needed for surgical pain., [facility]/pharmacy #[id number], 180, cm, 01/18/25 8:46:00 EDT, Height/Length Dosing, 78.8, kg, 01/18/25 8:46:00 EDT, Weight Dosing aspirin 325 mg Tab: 325 mg = 1 tab(s), Oral, Daily, Start the day after surgery for blood clot prevention., X 30 day(s), # 30 tab(s), Refills(s) 0, Pharmacy: [facility]/pharmacy #[id number], 180, cm, 01/18/25 8:46:00 EDT, Height/Length Dosing, 78.8, kg, 01/18/25 8:46:00 EDT, Weight D... Documented Medications Documented Albuterol (Eqv-ProAir HFA) 90 mcg/inh inhalation aerosol: 2 inh, Inhalation, q6hr, Refill(s) 0 Taltz Autoinjector 80 mg/mL subcutaneous solution: 80 mg, SubCutaneous, q4wk, psoriasis, Refills(s) 0 clobetasol Top 0.05% Foam: 1 jose david, Topical, BID, 100 gram, Refill(s) 0, psoriasis, Home Medications (6) Active Albuterol (Eqv-ProAir HFA) 90 mcg/inh inhalation aerosol 2 inh, Inhalation, q6hr aspirin 325 mg Tab 325 mg = 1 tab(s), Oral, Daily Cialis 10 mg Tab 10 mg = 1 tab(s), PRN, Oral, As Directed clobetasol Top 0.05% Foam 1 jose david, Topical, BID Percocet 5 mg-325 mg oral tablet See Instructions Taltz Autoinjector 80 mg/mL subcutaneous solution 80 mg, SubCutaneous, q4wk , Medications (9) Active Scheduled: (2) aspirin 325 mg Oral EC Tab [F] 325 mg 1 tab(s), Oral, Daily ceFAZolin + Sodium Chloride 0.9% Minibag 50 mL 2 gm 1 EA, IV Piggyback, PREOP Continuous: (2) Lactated Ringers 1,000 mL 1,000 mL, IV, 125 mL/hr Lactated Ringers 1,000 mL 1,000 mL, IV, 150 mL/hr PRN: (5) acetaminophen-oxyCODONE 325 mg-5 mg Tab [F] 1 tab(s), Oral, q6hr acetaminophen-oxyCODONE 325 mg-5 mg Tab [F] 2 tab(s), Oral, q6hr morphine 2 mg/mL preservative-free SOLN [F] 2 mg 1 mL, IV Push, q4hr morphine 4 mg/mL preservative-free [F] 4 mg 1 mL, IV Push, q4hr ondansetron 2 mg/mL Inj [F] 4 mg 2 mL, IV Push, q4hr Problem list: All Problems Anxiety / SNOMED CT 72583612 / Confirmed Asthma / SNOMED CT 604825526 / Confirmed Erectile dysfunction / SNOMED CT 2704640398 / Confirmed Hypogonadism male / SNOMED CT 16115532 / Confirmed Peyronie's disease / SNOMED CT 3109137 / Confirmed, Active Problems (5) Anxiety (more content not included)... [facility] Comment on above: Result Comment: Elec tronically Signed By: Brent Dixon MD\.br\Date and Time Signed: 01/18/25 15:08 EDT 01-18-2025 Note Progress Note-Physic katia Patient: LUX VALLE Age: 24 years Sex: Male : 2000 Associated Diagnoses: None Author: Brent Dixon MD Postoperative Information Postoperative disposition: Postoperative disposition: To PACU. Optimetrix number: Optimetrix number [id number]. Anesthetic utilized: General. Regional: ACB. Health Status Allergies: Allergic Reactions (Selected) No Known Medication Allergies Physical Examination Vital Signs 01/18/2025 14:50 EDT Heart Rate Monitored 72 bpm SpO2 99 % 01/18/2025 14:50 EDT Respiratory Rate 16 br/min 01/18/2025 14:50 EDT Systolic Blood Pressure 131 mmHg Diastolic Blood Pressure 72 mmHg Mean Arterial Pressure, Cuff 92 mmHg 01/18/2025 13:48 EDT Heart Rate Monitored 59 bpm LOW SpO2 100 % 01/18/2025 13:48 EDT Respiratory Rate 16 br/min 01/18/2025 13:48 EDT Systolic Blood Pressure 125 mmHg Diastolic Blood Pressure 84 mmHg Mean Arterial Pressure, Cuff 97 mmHg 01/18/2025 13:40 EDT Heart Rate Monitored 52 bpm LOW SpO2 100 % 01/18/2025 13:40 EDT Temperature Temporal Artery 36.4 DegC Respiratory Rate Monitored 12 br/min Systolic Blood Pressure 117 mmHg Diastolic Blood Pressure 81 mmHg Mean Arterial Pressure, Cuff 93 mmHg Pain Assessment: Controlled. General: Awake, Appropriate. Respiratory: Adequate air exchange. Cardiovascular: Stable. Neurological Assessment Anesthetic outcome Adequate pain relief. MAYKEL. Review / Management Condition: Stable. Plan Transfer/Discharge: Transfer/Discharge Discharge when meets criteria. [facility] Comment on above: Result Comment: Elec tronically Signed By: Fletcher GUTIÉRREZ, Brent Koroma\.br\Date and Time Signed: 01/18/25 15:03 EDT 01-18-2025 Note Patient Education - Text [place], [place] [facility] DISCHARGE INSTRUCTIONS: ANTERIOR CRUCIATE LIGAMENT GRAFT MEDICATIONS You will be given a prescription for pain medication. This should be taken as needed and try to take this with food. Pain medication can cause nausea, constipation, diarrhea, and restlessness and should only be used as needed. When you are able to tolerate Tylenol, this should be used instead. Take Enteric Coated Aspirin 325 mg once daily for three weeks for blood clot prevention if you are over 21 years of age. WOUND CARE Please keep dressing on for two days. Do not soak in the tub or otherwise submerge the incision until vidal are removed. Any increase in pain, temperature or redness should be promptly reported to the office. Reinforce dressing as needed. ACTIVITY You will be given a protocol of the Cruciate Ligament Reconstruction Program and therapy and this should be followed. Physical Therapy will advise you when it is safe to begin walking with crutches, generally this is performed after you obtain good leg strength, unless a meniscus repair has been performed as well. DIET You may begin to progress your regular home diet as tolerated. You should continue to increase fluids for the first two to three days after surgery. ANESTHESIA PRECAUTIONS You should not operate a vehicle (automobile, bicycle, motorcycle), machinery or power tools, make any important decisions or drink alcoholic beverages for 24 hours. You should not consume alcoholic beverages within 12 hours of using you pain medication. DRIVING Driving is legal. But if you are involved in an accident, you must be able to prove that you maintained full control of your vehicle. For this reason, it is advised that you do not drive until your strength returns. Similarly, all sports activities are discouraged, at least until your first post-operative visit at which time we will discuss how and when to resume sports. EXPECTATIONS OF SURGERY Your pain will continue to decrease day by day. You may experience swelling and this should be treated with elevation of the leg as well. Any increased pain should be promptly reported to my office. FOLLOW-UP APPOINTMENT You will be given a care for a follow-up appointment in the office, usually within 10 to 14 days. You will continue physical therapy until the time of your office visit. Any further questions may be discussed with Physical Therapy, or please contact the office for further clarification or any concerns. Rick Jean, DO [facility] [address] [place] [address] Reviewed: 06-09 [facility] 01-05-2025 History of Present illness Narrative Images from the original note were not included. GENERAL HISTORY AND PHYSICAL: NAME: Lux Valle : 2000 CHIEF COMPLAINT: Right knee pain and swelling with instability. HISTORY OF PRESENT ILLNESS: Lux is here referral from Dr. Priyank Jose with x-rays 12-02-2024, MRI 12-17-2024. He was playing [email or web address] basketball and when he went to make a cut maneuver, he came down, twisted and his knee gave and buckled. He had pain and swelling, difficulty bearing weight. 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 His pain is well controlled. He has been working throughout. He does feel as though his quad is feeling weaker. He does get buckling and pivot shift sensation if he is not careful. He comes in today with brace off. No assistive device. No prior prodrome of pain or issues with this knee reported. He does have a history of psoriasis and utilizes Taltz. He has been removed from this before. PAST MEDICAL HISTORY: Past Medical History: Diagnosis Date Anxiety Asthma (HCC) Psoriasis PAST SURGICAL HISTORY: History reviewed. No pertinent surgical history. SOCIAL HISTORY: Social History Occupational History Not on file Tobacco Use Smoking status: Never Smokeless tobacco: Never Vaping Use Vaping status: Some Days Substances: THC Substance and Sexual Activity Alcohol use: Not Currently Drug use: Yes Types: Marijuana Sexual activity: Not on file ALLERGIES: No Known Allergies MEDICATIONS: Current Outpatient Medications Medication Instructions albuterol HFA 90 mcg/act inhaler 2 puffs, Inhalation, Every 6 hours PRN clobetasol (Temovate) 0.05 % external solution APPLY TO SCALP EVERY SATURDAY - SATURDAY OFF ON THE WEEKENDS NEEDED FOR FLARES Taltz 80 MG/ML injection Every 5-6 weeks REVIEW OF SYSTEMS: The review of systems, history and current medications list are all reviewed today. Vitals: Visit Vitals Ht 5' 10 Wt 179 lb BMI 25.68 kg/m Smoking Status Never BSA 2 m PHYSICAL EXAM: On physical exam, he is alert and oriented. Vital signs are stable. No sign of skin irritation or rash to the knee. There is a mild residual effusion to the knee. Diffuse tenderness of the lateral femoral condyle is present. He gets near full extension within 3-4 degrees. He will flex the knee to approximately 110. He has a positive Nelida and drawer, positive pivot shift. Collateral ligaments are intact. Meniscal exam is negative. His gait is flexed in a stiff posture. He is able to bear weight. X-rays, permanently saved to the patient's record, are reviewed show no acute fracture, dislocation, tumor or infection seen. Soft tissue swelling is noted. MRI is reviewed as above taken recently shows complete ACL tear with a moderate effusion. There is some lateral bone bruising consistent with an acute pivot shift. The meniscus appears to be intact. No obvious sign of osteochondral lesion or loose body. Surgical History and Physical: GENERAL AND PSYCHOLOGICAL: The patient is alert and oriented for age. HEAD AND E.E.N.T.: The skull is normocephalic. There is no mass or sign of trauma. NECK: The neck is supple. There is good range of motion. There is no mass or adenopathy appreciated. The thyroid is not enlarged. CARDIAC: The heart is regular. There is no murmur or ectopy appreciated. LUNGS: Inspiratory and expiratory excursions are symmetrical. The lung stern are clear in all quadrants. ABDOMEN: The texture is soft. Bowel sounds are heard well in all quadrants. There is no tenderness to palpation. There is no organomegaly appreciated. OSTEOPATHIC AND STRUCTURAL: There is no gross evidence of kyphosis, lordosis, scoliosis, or apparent leg length discrepancy, with no acute tissue texture changes in sitting or standing positions. ASSESSMENT: Right knee internal derangement with complete ACL tear; psoriasis with Taltz therapy. PLAN: The nature of the findings were discussed at length. We discussed the MRI, the pathology of ACL tear. We discussed the graft options. The pros, cons, risks, benefits of auto versus allograft were reviewed. The perioperative course, time, healing, commitment and expectations of surgery were discussed. He is aware there is always a higher susceptibility for recurrent tear of ACL grafts and there could be potential future injury. Time, healing, commitment and expectations were all reviewed. The potential of infection, stiffness, pain, instability, recurrent tear, cyclops lesion, mechanical symptoms, sensitivity of the scars, swelling, decreased functionality, pain, giving out, prolonged physical therapy, blood clot, pulmonary embolism, myocardial infarction, arrhythmia, stroke and were all reviewed. He would have to be removed off the Taltz two weeks preoperative and preferably two weeks postoperative. Consent forms are signed and witnessed for right knee arthroscopy with anterior cruciate ligament reconstruction. He is going to call back regarding auto, bone-patellar tendon-bone versus allograft. Once again, an unbiased approach was discussed with the pros, cons, risks, benefits and reasonable expectations of each being reviewed. We will authorize an [id number] brace for surgery. We did measure him for his custom ACL brace that he will utilize later. He voices verbal understanding. He is discharged in stable condition. Nursing contact information is provided. Follow up letter sent to Dr. Priyank Jose. Rick Jean D.O. Cosigned by Rick Jean DO at 01/11/2025 2:18 PM EDT documented in this encounter [facility] 12-21-2024 Telephone encounter Note Pt calling to fu about MRI results. [facility] 12-21-2024 Miscellaneous Notes Pt calling to fu about MRI results. documented in this encounter [facility] 12-08-2024 Telephone encounter Note Pt had appointment with FM today. [facility] Work Phone: 12-08-2024 Miscellaneous Notes Pt had appointment with FM today. Patient called and was very upset. He still cannot walk on his knee. Patient called Dr. Jose office (see TE) and stated told him to wait 1 week then get an MRI on his knee. Patient states Dr. Jose office told him he had to get MRI order from since he was seen here. Patient upset, please review documented in this encounter [facility] 12-08-2024 History of Present illness Narrative Images from the original note were not included. Lux Valle is a 24 y.o. male presents with chief complaint of Chief Complaint Patient presents with Follow-up Lux was seen today for follow-up. Diagnoses and all orders for this visit: Effusion of bursa of right knee - MR knee right wo IV contrast Acute pain of right knee - MR knee right wo IV contrast Assessment & Plan Right knee effusion. Continued knee pain after fall, mild improvement with ibuprofen. Significant effusion noted, unable to fully flex past 90 degrees, close to zero with extension, some laxity, MCL intact. Differential diagnosis includes ACL tear or large meniscus tear. X-rays reviewed, MRI ordered for further evaluation. Advised to continue ibuprofen twice daily, ice knee for 20 minutes 2-3 times a day, elevate leg, and gently move to reduce swelling. MRI of the knee to be obtained. MEDICATION SUMMARY: Medication Changes As of 12/08/2024 2:47 PM Refills Start Date End Date Discontinued or Completed: hyoscyamine (Levsin) 0.125 MG SL tablet (Therapy completed) Discontinued or Completed: ondansetron ODT (Zofran-ODT) 4 MG disintegrating tablet (Therapy completed) Patient-reported medication Medication List at End of Visit As of 12/08/2024 2:47 PM Refills Start Date End Date albuterol HFA 90 mcg/act inhaler 2 08/18/2024 -- Inhale 2 puffs every 6 (six) hours if needed for wheezing - Inhalation clobetasol (Temovate) 0.05 % external solution -- 11/17/2024 -- APPLY TO SCALP EVERY SATURDAY - SATURDAY OFF ON THE WEEKENDS NEEDED FOR FLARES Patient-reported medication Taltz 80 MG/ML injection -- 12/25/2023 -- Every 5-6 weeks Patient-reported medication AMPARO JOSE D.O. This note was entered using [employer]. Grammatical and dictation errors maybe present in translation *I have reviewed and reconciled the history and medication list with the patient today* History of Present Illness Went to on 12.02.24 for knee pain after falling the day before and landing hard on right leg and fell while playing basketball. Had xray at which was negative for fracture. pain on lateral and medial side of knee. Pain has improved somewhat since injury. Has been wearing brace. Has bene icing and elevating often. Taking ibuprofen 800mg bid. Feels knee has improved about 40% since injury but does not feel he can walk normally or fully extend his leg due to pain. The patient is a 24-year-old male who presents with knee pain after falling. He recounts an incident while playing basketball where he was dribbling, ascended for a shot, and upon landing, twisted his knee and fell flat on the ground. He experienced immediate swelling in the knee, which has since reduced but remains noticeable. He describes the initial pain as sudden and intense, causing him to hit his hands on the floor in shock. He sought immediate medical attention at an urgent care facility where an x-ray was performed, yielding normal results. Despite this, he continues to experience pain. He has been managing the pain with ibuprofen twice daily, which has provided some relief. However, he still struggles to fully extend his leg while standing and experiences significant discomfort when attempting to kick back. The pain intensifies during walking and stepping movements. He has been using a brace intermittently but reports no significant difference in pain levels with or without it. SUBJECTIVE: Current Medications: Allergies/Social History: ROS Current Outpatient Medications Medication Instructions albuterol HFA 90 mcg/act inhaler 2 puffs, Inhalation, Every 6 hours PRN clobetasol (Temovate) 0.05 % external solution APPLY TO SCALP EVERY SATURDAY - SATURDAY OFF ON THE WEEKENDS NEEDED FOR FLARES Taltz 80 MG/ML injection Every 5-6 weeks No Known Allergies Social History Tobacco Use Smoking status: Never Smokeless tobacco: Never Vaping Use Vaping status: Some Days Substances: THC Substance Use Topics Alcohol use: Not Currently Drug use: Yes Types: Marijuana Review of Systems Constitutional: Negative for fatigue and fever. Musculoskeletal: Positive for arthralgias. Skin: Negative for rash. Neurological: Negative. Negative for weakness and numbness. Psychiatric/Behavioral: Negative. All other systems reviewed and are negative. Hematological: Does not bruise/bleed easily. Past Medical History: Surgical History: Depression Screen/FHx Past Medical History: Diagnosis Date Anxiety Asthma (HCC) Psoriasis History reviewed. No pertinent surgical history. Depression: Not at risk (12/08/2024) PHQ-2 PHQ-2 Score: 0 No family history on file. OBJECTIVE: 12/08/2024 2:36 PM 12/02/2024 11:41 AM 08/18/2024 9:09 AM 04/20/2024 2:32 PM 06/04/2022 12:00 PM 04/03/2022 12:00 PM 01/05/2022 12:00 PM Vitals BMI 25.68 kg/m2 25.25 kg/m2 25.4 kg/m2 27.55 kg/m2 25.88 kg/m2 25.54 kg/m2 BSA (m2) 2 m2 1.99 m2 1.99 m2 2.07 m2 2.01 m2 2 m2 Systolic 128 144 114 124 126 120 122 Diastolic 84 72 72 66 72 74 74 Heart Rate 60 80 116 77 SpO2 97 % 99 % 98 % 98 % Temp 98.3 F 96.9 F 99.9 F 98.1 F Height (in) 5' 10 5' 10 5' 10 5' 10 5' 10 5' 10 Weight (lb) 179 176 177 192 180.4 178 Visit Report Report Report Report Report Physical Exam General Appearance: Alert and oriented. Pleasant affect. No acute distress. Well nourished. Head: Atraumatic normal cephalic. No masses or swelling. Eyes: EOMI, sclera white, conjunctiva clear, no injection. Pupils relatively equal size. Ears: External ears normal. No signs or trauma or infection. Nose: Nasal mucosal pink and moist, No discharge or congestion. Normal appearance of the soft tissue of the nose. Throat: Lips moist, Teeth and gums in good condition. Neck: Supple, no obvious range of motion deficits, no swelling or pain. Musculoskeletal/Extremities: Significant effusion in the right knee. Unable to fully flex past 90 degrees due to the effusion. Extension gets close to zero degrees. Active or passive range of motion has similar degrees of motion and pain. ACL assessment is limited due to effusion and inability to fully bend the knee, but some laxity is present. MCL is intact. Meniscus testing is limited due to inability to flex past 90 degrees, active or passively. Significant antalgic gait is observed. Noted quad inhibition. Skin: Warm and dry, no rashes. Neurological: Neurovascularly intact. Psychiatric: Cooperative, pleasant, no signs of major mood disorder. documented in this encounter [facility] 12-04-2024 Telephone encounter Note Patient called and was very upset. He still cannot walk on his knee. Patient called Dr. Carolyne patel (see TE) and stated told him to wait 1 week then get an MRI on his knee. Patient states Dr. Jose office told him he had to get MRI order from since he was seen here. Patient upset, please review [facility] 12-02-2024 History of Present illness Narrative Associated Order(s): Splint Application Post-Procedure Diagnose(s): Sprain of right knee, unspecified ligament, initial encounter Images from the original note were not included. HPI: Historian of HPI: patient Lux Valle is a 24 y.o. male who presents today to the Urgent Care with the following complaints and denials due right knee pain which has been present for 1 day(s). C/O Denies Symptom Comments [x] [] swelling [] [x] ecchymosis [] [x] erythema [] [x] tingling [] [x] numbness [] [x] Pain radiation [x] [] Weakness [] [x] Decreased ROM [x] [] Trauma Additional Comments: pt has taken tylenol and ibuprofen OTC medication with relief Pt admits to cold application to the affected area Fell while playing basketball and landed on his right knee. He reports the pain is not reproducible to the touch. Reports the pain is deep and is feels unstable from side to side. Has a brace on it that he placed on it about 12 hours ago. ROS: A complete system ROS was performed and negative aside from the pertinent positives noted in the HPI and PE. Physical Exam General Examination: alert, oriented, normal affect, well appearing, in no acute distress, well developed, well nourished Head: normocephalic, atraumatic Skin: minimal edema about the right knee generally, no ecchymosis Musculoskeletal: right knee: limited AROM secondary to pain. Drawer's neg. Collaterals stable. No joint effusion or crepitance. Tenderness: none. Extremities: no edema, no cyanosis Peripheral Pulses: 2+ posterior tibial, 2+ dorsalis pedis rt Neurologic: sensor exam intact RLE Psych: alert, oriented, cognitive function intact, cooperative with exam. Assessment/Plan 1. Sprain of right knee, unspecified ligament, initial encounter (Primary) Discussed diagnosis and treatment. Patient advised to elevate and ice affected area 20 minutes on then off for at least 20 minutes and skin has returned to its baseline temperature. Patient advised to take ibuprofen 400-600 mg two to three times daily as needed with food, side effects discussed. Patient to follow-up ortho (he will follow up with Dr. Jose) in 7 days. Advised return sooner if new, worsening, or persistent symptoms. All questions and concerns addressed. Patient voiced understanding and agreement with the plan. 2. Acute pain of right knee XR prelim interp negative for acute fracture, reviewed with pt. - XR knee 4+ views rightPatient ID: Lux Valle is a 24 y.o. male. Splint Application Date/Time: 12/02/2024 12:36 PM Performed by: Faviola Montague MA Authorized by: NELSON Flores Consent: Consent obtained: Verbal and written Consent given by: Patient Risks, benefits, and alternatives were discussed: yes Risks discussed: Discoloration, numbness, swelling and pain Dawson protocol: Imaging studies available: yes Patient identity confirmed: Verbally with patient Procedure details: Location: Knee Knee location: R knee Splint type: Knee immobilizer Attestation: Splint applied and adjusted personally by me Post-procedure details: Procedure completion: Tolerated Applied Rt knee hinged brace. DME signed and scanned in chart. documented in this encounter [facility] 08-18-2024 History of Present illness Narrative Images from the original note were not included. Lux Valle is a 24 y.o. male presents with chief complaint of Chief Complaint Patient presents with Stool Color Change Lux was seen today for stool color change. Diagnoses and all orders for this visit: Diarrhea of presumed infectious origin Cough, unspecified type - STATUS COVID-19/FLU Mild intermittent asthma without complication (CMS/HCC) Immunosuppression (CMS/HCC) Psoriasis of scalp (CMS/[facility]) Assessment & Plan Diarrhea. A comprehensive differential diagnosis was discussed, including the possibility of norovirus, which is currently prevalent in the community. Other potential infections were also considered. He prefers to postpone stool studies and blood work at this time. A trial of hyoscyamine sublingual 0.125 mg every 6 to 8 hours as needed will be initiated to alleviate symptoms and potentially stimulate appetite. If there is a noticeable improvement, further testing will be deferred. However, if symptoms persist beyond the next 24 to 36 hours, he is advised to contact the office, at which point an order for testing will be issued. Emergency signs were discussed, and all questions were addressed during the visit. Asthma. Inhaler refills will be sent to [facility] in [place] to ensure he has access to his medications. AMPARO JOSE D.O. This note was entered using [employer]. Grammatical and dictation errors maybe present in translation *I have reviewed and reconciled the history and medication list with the patient today* History of Present Illness The patient is a 24-year-old male who presents with nausea, diarrhea, fatigue, and body aches that started about a week ago. He noticed a color change in his stool, which was slightly more red. After taking Pepto-Bismol, his stool has turned black. Recently, he has been experiencing more congestion, cough, and chills. He reports that his gastrointestinal symptoms began last Saturday, initially presenting as stomach discomfort at work, which escalated to frequent bowel movements by Saturday. Despite the passage of time, these symptoms have not subsided. He experiences diarrhea every couple of hours, necessitating bathroom visits every 2 hours. He describes his condition as deteriorating, now on the eighth day of his illness. Initially, he experienced nausea, but this symptom has since subsided. He reports episodes of sweating followed by cold sensations, accompanied by weakness and abdominal rumbling. He recalls a brief period of hunger a few days ago, which led him to believe he was recovering. However, his condition worsened again, and he has not consumed solid food in over a week. He reports no recent travel history. He mentions that his father has exhibited similar symptoms, and he has had limited contact with him. 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 He believes he is maintaining adequate hydration through water, Gatorade, and orange juice. He also reports respiratory symptoms, including nasal congestion and a mild cough, but maintains that his asthma remains unaffected. He describes his overall condition as miserable, characterized by weakness and fatigue. He has been experiencing significant weight loss, with a total loss of 15 pounds since the onset of his symptoms. He recalls an initial episode of hematochezia, which has since resolved. Currently, he reports melena, which he attributes to his use of Pepto-Bismol. He has been attempting to maintain his nutritional intake, consuming chicken noodle soup daily, but abstained from eating yesterday due to a lack of appetite. SOCIAL HISTORY - Works at a [employer] MEDICATIONS Current: Pepto-Bismol Symptoms started 8 days ago with diarrhea, fatigue, body aches. In the last 2-3 days has had nasal congestion, cough, chills. Diarrhea was red for the first 3 days but now has been black in color. Has been taking pepto bismol once a day. Diarrhea is described watery. Denies mucous in stool. SUBJECTIVE: Current Medications: Allergies/Social History: Depression Screen/Family History: Current Outpatient Medications on File Prior to Visit Medication Sig Dispense Refill albuterol HFA 90 mcg/act inhaler Inhale 2 puffs every 6 (six) hours if needed for wheezing 18 g 2 Taltz 80 MG/ML injection Every 5-6 weeks [DISCONTINUED] tiZANidine (Zanaflex) 2 MG tablet TAKE 1 TABLET BY MOUTH AT BEDTIME 90 tablet 1 No current facility-administered medications on file prior to visit. No Known Allergies Social History Tobacco Use Smoking status: Never Smokeless tobacco: Never Vaping Use Vaping status: Never Used Substance Use Topics Alcohol use: Not Currently Drug use: Yes Types: Marijuana Depression: Not at risk (08/18/2024) PHQ-2 PHQ-2 Score: 0 No family history on file. Past Medical History: Surgical History: ROS Past Medical History: Diagnosis Date Anxiety Asthma ([facility]) Psoriasis ([facility]) History reviewed. No pertinent surgical history. Review of Systems Constitutional: Positive for chills and fatigue. HENT: Positive for congestion, rhinorrhea and sinus pressure. Respiratory: Positive for cough. Negative for shortness of breath. Cardiovascular: Negative for chest pain. Gastrointestinal: Positive for blood in stool, diarrhea and nausea. Negative for abdominal distention and vomiting. Skin: Negative for rash. Neurological: Negative for dizziness. All other systems reviewed and are negative. OBJECTIVE: 08/18/2024 9:09 AM 04/20/2024 2:32 PM 06/04/2022 12:00 PM 04/03/2022 12:00 PM 01/05/2022 12:00 PM 03/30/2020 12:00 PM 03/16/2020 12:00 PM Vitals BMI 25.25 kg/m2 25.4 kg/m2 27.55 kg/m2 25.88 kg/m2 25.54 kg/m2 24.11 kg/m2 24.25 kg/m2 BSA (m2) 1.99 m2 1.99 m2 2.07 m2 2.01 m2 2 m2 1.94 m2 1.95 m2 Systolic 114 124 126 120 122 102 124 Diastolic 72 66 72 74 74 64 78 Heart Rate 116 77 SpO2 98 % 98 % Temp 99.9 F 98.1 F Height (in) 5' 10 5' 10 5' 10 5' 10 5' 10 5' 10 5' 10 Weight (lb) 176 177 192 180.4 178 168 169 Visit Report Report Report GENERAL EXAM: Physical Exam General Appearance: Alert and oriented. Pleasant affect. No acute distress. Well nourished. Head: Atraumatic normal cephalic. No masses or tenderness. Eyes: EOMI, sclera white, conjunctiva clear, no injection. Pupils relatively equal size. Ears: External ears normal. No signs or trauma or infection. Nose: Mild to moderate nasal congestion with no purulent discharge. Throat: Lips moist, Teeth and gums in good condition. No exudate or drainage. Neck: Supple, normal rom of neck, no swelling or pain on palpitation. Respiratory: Clear to auscultation bilaterally, no wheezes, rhonchi or crackles. Good breaths sounds throughout lung stern. Cardiovascular: Regular rate and rhythm, no murmurs. Normal S1, S2. Gastrointestinal: Soft, nontender, nondistended. No guarding or rebound on palpation. Back, Musculoskeletal: No gross deformities or malalignment, normal ambulation. Extremities: No swelling, no deformity or acute findings. Skin: Warm and dry, no rashes. Neurological: Cranial nerves II-VII grossly intact, no gross neurologic abnormalities. Psychiatric: Cooperative, pleasant, no signs of mood disorder. documented in this encounter [facility] 04-22-2024 Telephone encounter Note Inquiring about xray results. Please give a call back. [facility] 04-22-2024 Miscellaneous Notes Inquiring about xray results. Please give a call back. documented in this encounter [facility] 04-20-2024 History of Present illness Narrative Images from the original note were not included. Lux Valle is a 23 y.o. male presents with chief complaint of Chief Complaint Patient presents with Asthma ASSESSMENT AND PLAN: Lux was seen today for asthma. Diagnoses and all orders for this visit: Left flank pain - XR abdomen 1 view; Future - predniSONE (Deltasone) 20 MG tablet; Take 2 tablets (40 mg) by mouth Daily for 3 days, THEN 1 tablet (20 mg) Daily for 3 days, THEN 0.5 tablets (10 mg) Daily for 4 days. - tiZANidine (Zanaflex) 2 MG tablet; Take 1 tablet (2 mg) by mouth at bedtime Thoracic back pain, unspecified back pain laterality, unspecified chronicity - XR thoracic spine 3 views - predniSONE (Deltasone) 20 MG tablet; Take 2 tablets (40 mg) by mouth Daily for 3 days, THEN 1 tablet (20 mg) Daily for 3 days, THEN 0.5 tablets (10 mg) Daily for 4 days. - tiZANidine (Zanaflex) 2 MG tablet; Take 1 tablet (2 mg) by mouth at bedtime The patient has been experiencing back and left-sided chest pain for years, with daily occurrences in the last couple of months. He reports no shortness of breath or wheezing and has tried using his albuterol inhaler without relief. The pain is described as a dull ache with occasional sharp stings in the front and a burning sensation in the back. It is exacerbated by activities such as washing hair or doing dishes and alleviated by sitting or lying down. He also experiences frequent back cracking and morning dry heaving, despite taking omeprazole for the past two weeks. Examination reveals pain to palpation in the posterior ribs and mid-thoracic area, with minimal pain on rotation, flexion, and extension of the thoracic spine. There is no bruising, crepitus, or deformity. A differential diagnosis includes musculoskeletal issues, organ-related pain, and potential kidney stones. An x-ray of the thoracic spine and KUB will be obtained. A trial of steroids and muscle relaxers will be prescribed, with side effects reviewed. If symptoms persist, a CT scan of the abdomen and pelvis will be recommended to further evaluate his pain. AMPARO JOSE D.O. This note was entered using zulilyot. Grammatical and dictation errors maybe present in translation *I have reviewed and reconciled the history and medication list with the patient today* History of Present Illness Has been experiencing middle back pain and left sided chest pain intermittently for years. In the last couple of months this pain has been occurring daily. He is wondering if this pain is related to his asthma. Has tried to use albuterol when this happens but he notices no symptoms. He denies any shortness of breath or wheezing with activity. He does not feel that this pain is related to anxiety as he has been off lexapro for 6-9 months and his mood has been good. Does admit to smoking marijuana but states he does not do this daily, mainly uses edibles. The patient is here for evaluation of back pain and left-sided chest pain. He has been experiencing this pain for years, but in the last couple of months, it has been occurring daily. He describes the pain as a dull pressure, sometimes sharp in the front, and a dull ache with a slight burning sensation in the back. The pain is so intense that he often needs to sit down and cannot stand for long periods. He experiences pain and pressure in the lower curved part of his back when taking deep breaths. Additionally, he mentions frequent back cracking and wonders if it could be related to his pain. By the end of the day, the pain becomes so severe that he struggles to stand. He reports significant back pain that hinders his movement, particularly when using his arms. Activities like washing his hair or doing dishes trigger this pain. He maintains an active lifestyle, including running a mile, without any issues. He also experiences morning nausea, which he initially attributed to acid reflux. Despite taking omeprazole for the past 2 weeks, he has not noticed any improvement. He is wondering if the pain is related to asthma. He tried his albuterol inhaler but did not notice much change. He reports no symptoms of asthma such as wheezing, coughing, or shortness of breath. He had blood work done at [facility] 6 or 7 months ago for his psoriasis treatment, which came back normal. SOCIAL HISTORY He does not smoke cigarettes at all. He does smoke weed time to time. 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 SUBJECTIVE: Current Medications: Allergies/DC Medication Depression Screen/Social History Current Outpatient Medications: albuterol HFA 90 mcg/act inhaler, USE 1 INHALATION EVERY 4 TO 6 HOURS NEEDED, Disp: 25.5 g, Rfl: 3 Taltz 80 MG/ML injection, Every 5-6 weeks, Disp: , Rfl: predniSONE (Deltasone) 20 MG tablet, Take 2 tablets (40 mg) by mouth Daily for 3 days, THEN 1 tablet (20 mg) Daily for 3 days, THEN 0.5 tablets (10 mg) Daily for 4 days., Disp: 11 tablet, Rfl: 0 tiZANidine (Zanaflex) 2 MG tablet, Take 1 tablet (2 mg) by mouth at bedtime, Disp: 30 tablet, Rfl: 1 No Known Allergies Medications Discontinued During This Encounter Medication Reason albuterol HFA 90 mcg/act inhaler Therapy completed dexAMETHasone (Decadron) 6 MG tablet Therapy completed escitalopram (Lexapro) 20 MG tablet Therapy completed Ixekizumab (Taltz) 80 MG/ML injection Therapy completed Depression: Not at risk (04/20/2024) PHQ-2 PHQ-2 Score: 0 Social History Tobacco Use Smoking status: Never Smokeless tobacco: Never Vaping Use Vaping status: Never Used Substance Use Topics Alcohol use: Not Currently Comment: 5 or 6 drinks once a month Drug use: Yes Types: Marijuana PAST MEDICAL HISTORY: SURGICAL/SOCIAL/FAMILY HISTORY Past Medical History: Diagnosis Date Anxiety Asthma ([facility]) Psoriasis ([facility]) History reviewed. No pertinent surgical history. No family history on file. REVIEW OF SYMPTOMS: Review of Systems Constitutional: Negative for fatigue and fever. Musculoskeletal: Positive for arthralgias. Skin: Negative for rash. Neurological: Negative. Negative for weakness and numbness. Psychiatric/Behavioral: Negative. All other systems reviewed and are negative. Hematological: Does not bruise/bleed easily. OBJECTIVE: 04/20/2024 2:32 PM 06/04/2022 12:00 PM 04/03/2022 12:00 PM Vitals BMI 25.4 kg/m2 27.55 kg/m2 25.88 kg/m2 BSA (m2) 1.99 m2 2.07 m2 2.01 m2 Systolic 124 126 120 Diastolic 66 72 74 Heart Rate 77 SpO2 98 % Temp 98.1 F Height (in) 5' 10 5' 10 5' 10 Weight (lb) 177 192 180.4 Visit Report Report GENERAL EXAM: Physical Exam Vitals reviewed. Constitutional: General: He is not in acute distress. Appearance: Normal appearance. He is not ill-appearing. HENT: Head: Normocephalic and atraumatic. Nose: Nose normal. Mouth/Throat: Mouth: Mucous membranes are moist. Eyes: General: No scleral icterus. Extraocular Movements: Extraocular movements intact. Cardiovascular: Rate and Rhythm: Normal rate and regular rhythm. Heart sounds: No murmur heard. Pulmonary: Effort: Pulmonary effort is normal. Breath sounds: Normal breath sounds. Musculoskeletal: General: Normal range of motion. Cervical back: Normal range of motion and neck supple. Skin: General: Skin is warm and dry. Findings: No rash. Neurological: General: No focal deficit present. Mental Status: He is alert and oriented to person, place, and time. Mental status is at baseline. Psychiatric: Mood and Affect: Mood normal. Behavior: Behavior normal. Thought Content: Thought content normal. Judgment: Judgment normal. ADDITIONAL EXAM: Physical Exam Pain is present upon palpation of the posterior ribs in the mid thoracic area. Minimal pain is experienced with rotation, flexion, and extension of the thoracic spine. No bruising, crepitus, or deformity is observed. documented in this encounter [facility] 04-09-2023 Hospital Discharge instructions Follow Up Care 04/09/2023 15:41:15 With:JEFERSON GUTIÉRREZ, Tamar Hawk, URL Address: [facility] [address] , [facility] [place] [address]- [phone] When: Unknown [facility] 11-09-2022 Hospital Discharge instructions Patient Education 11/09/2022 08:12:05 Hypogonadism, Male Hypogonadism, Male Male hypogonadism is a condition of having a level of testosterone that is lower than normal. Testosterone is a chemical, or hormone, that is made mainly in the testicles. In boys, testosterone is responsible for the development of male characteristics during puberty. These include: Making the penis bigger. Growing and building the muscles. Growing facial hair. Deepening the voice. In adult men, testosterone is responsible for maintaining: An interest in sex and the ability to have sex. Muscle mass. Sperm production. Red blood cell production. Bone strength. Testosterone also gives men energy and a sense of well-being. Testosterone normally decreases as men age and the testicles make less testosterone. Testosterone levels can vary from man to man. Not all men will have signs and symptoms of low testosterone. Weight, alcohol use, medicines, and certain medical conditions can affect a man's testosterone level. What are the causes? This condition is caused by: A natural decrease in testosterone that occurs as a man grows older. This is the main cause of this condition. Use of medicines, such as antidepressants, steroids, and opioids. Diseases and conditions that affect the testicles or the making of testosterone. These include: ?Injury or damage to the testicles from trauma, cancer, cancer treatment, or infection. ?Diabetes. ?Sleep apnea. ?Genetic conditions that men are born with. ?Disease of the pituitary gland. This gland is in the brain. It produces hormones. ?Obesity. ?Metabolic syndrome. This is a group of diseases that affect blood pressure, blood sugar, cholesterol, and belly fat. ?HIV or AIDS. ?Alcohol abuse. ?Kidney failure. ?Other long-term or chronic diseases. What are the signs or symptoms? Common symptoms of this condition include: Loss of interest in sex (low sex drive). Inability to have or maintain an erection (erectile dysfunction). Feeling tired (fatigue). Mood changes, like irritability or depression. Loss of muscle and body hair. Infertility. Large breasts. Weight gain (obesity). How is this diagnosed? Your health care provider can diagnose hypogonadism based on: Your signs and symptoms. A physical exam to check your testosterone levels. This includes blood tests. Testosterone levels can change throughout the day. Levels are highest in the morning. You may need to have repeat blood tests before getting a diagnosis of hypogonadism. Depending on your medical history and test results, your health care provider may also do other tests to find the cause of low testosterone. How is this treated? This condition is treated with testosterone replacement therapy. Testosterone can be given by: Injection or through pellets inserted under the skin. Gels or patches placed on the skin or in the mouth. Testosterone therapy is not for everyone. It has risks and side effects. Your health care provider will consider your medical history, your risk for prostate cancer, your age, and your symptoms before putting you on testosterone replacement therapy. Follow these instructions at home: Take [id number] and prescription medicines only as told by your health care provider. Eat foods that are high in fiber, such as beans, whole grains, and fresh fruits and vegetables. Limit foods that are high in fat and processed sugars, such as fried or sweet foods. If you drink alcohol: ?Limit how much you have to 0 2 drinks a day. ?Know how much alcohol is in your drink. In the [place] one drink equals one 12 oz bottle of beer (355 mL), one 5 oz glass of wine (148 mL), or one 1 oz glass of hard liquor (44 mL). Return to your normal activities as told by your health care provider. Ask your health care provider what activities are safe for you. Keep all follow-up visits. This is important. Contact a health care provider if: You have any of the signs or symptoms of low testosterone. You have any side effects from testosterone therapy. Summary Male hypogonadism is a condition of having a level of testosterone that is lower than normal. The natural drop in testosterone production that occurs with age is the most common cause of this condition. Low testosterone can also be caused by many diseases and conditions that affect the testicles and the making of testosterone. This condition is treated with testosterone replacement therapy. There are risks and side effects of testosterone therapy. Your health care provider will consider your age, medical history, symptoms, and risks for prostate cancer before putting you on testosterone therapy. This information is not intended to replace advice given to you by your health care provider. Make sure you discuss any questions you have with your health care provider. Document Revised: 02/02/2021 Document Reviewed: 02/02/2021 [employer] Patient Education 2022 [employer]. Follow Up Care 10/08/2022 15:30:43 With:JEFERSON GUTIÉRREZ, Tamar Hawk, URL Address: [facility] [address] , [place] [address]- When: Unknown [facility] 07-16-2022 Hospital Discharge instructions Patient Education 07/16/2022 08:24:33 Erectile Dysfunction Erectile Dysfunction Erectile dysfunction (ED) is the inability to get or keep an erection in order to have sexual intercourse. Erectile dysfunction may include: Inability to get an erection. Lack of enough hardness of the erection to allow penetration. Loss of the erection before sex is finished. What are the causes? This condition may be caused by: Certain medicines, such as: ?Pain relievers. ?Antihistamines. ?Antidepressants. ?Blood pressure medicines. ?Water pills (diuretics). ?Ulcer medicines. ?Muscle relaxants. ?Drugs. Excessive drinking. Psychological causes, such as: ?Anxiety. ?Depression. ?Sadness. ?Exhaustion. ?Performance fear. ?Stress. Physical causes, such as: ?Artery problems. This may include diabetes, smoking, liver disease, or atherosclerosis. ?High blood pressure. ?Hormonal problems, such as low testosterone. ?Obesity. ?Nerve problems. This may include back or pelvic injuries, diabetes mellitus, multiple sclerosis, or Parkinson disease. What are the signs or symptoms? Symptoms of this condition include: Inability to get an erection. Lack of enough hardness of the erection to allow penetration. Loss of the erection before sex is finished. Normal erections at some times, but with frequent unsatisfactory episodes. Low sexual satisfaction in either partner due to erection problems. A curved penis occurring with erection. The curve may cause pain or the penis may be too curved to allow for intercourse. Never having nighttime erections. How is this diagnosed? This condition is often diagnosed by: Performing a physical exam to find other diseases or specific problems with the penis. Asking you detailed questions about the problem. Performing blood tests to check for diabetes mellitus or to measure hormone levels. Performing other tests to check for underlying health conditions. Performing an ultrasound exam to check for scarring. Performing a test to check blood flow to the penis. Doing a sleep study at home to measure nighttime erections. How is this treated? This condition may be treated by: Medicine taken by mouth to help you achieve an erection (oral medicine). Hormone replacement therapy to replace low testosterone levels. Medicine that is injected into the penis. Your health care provider may instruct you how to give yourself these injections at home. Vacuum pump. This is a pump with a ring on it. The pump and ring are placed on the penis and used to create pressure that helps the penis become erect. Penile implant surgery. In this procedure, you may receive: ?An inflatable implant. This consists of cylinders, a pump, and a reservoir. The cylinders can be inflated with a fluid that helps to create an erection, and they can be deflated after intercourse. ?A semi-rigid implant. This consists of two silicone rubber rods. The rods provide some rigidity. They are also flexible, so the penis can both curve downward in its normal position and become straight for sexual intercourse. Blood vessel surgery, to improve blood flow to the penis. During this procedure, a blood vessel from a different part of the body is placed into the penis to allow blood to flow around (bypass) damaged or blocked blood vessels. Lifestyle changes, such as exercising more, losing weight, and quitting smoking. Follow these instructions at home: Medicines Take moqd-uau-mcjxoxv and prescription medicines only as told by your health care provider. Do not increase the dosage without first discussing it with your health care provider. If you are using self-injections, perform injections as directed by your health care provider. Make sure to avoid any veins that are on the surface of the penis. After giving an injection, apply pressure to the injection site for 5 minutes. General instructions Exercise regularly, as directed by your health care provider. Work with your health care provider to lose weight, if needed. Do not use any products that contain nicotine or tobacco, such as cigarettes and e-cigarettes. If you need help quitting, ask your health care provider. Before using a vacuum pump, read the instructions that come with the pump and discuss any questions with your health care provider. Keep all follow-up visits as told by your health care provider. This is important. Contact a health care provider if: You feel nauseous. You vomit. Get help right away if: You are taking oral or injectable medicines and you have an erection that lasts longer than 4 hours. If your health care provider is unavailable, go to the nearest emergency room for evaluation. An erection that lasts much longer than 4 hours can result in permanent damage to your penis. You have severe pain in your groin or abdomen. You develop redness or severe swelling of your penis. You have redness spreading up into your groin or lower abdomen. You are unable to urinate. You experience chest pain or a rapid heart beat (palpitations) after taking oral medicines. Summary Erectile dysfunction (ED) is the inability to get or keep an erection during sexual intercourse. This problem can usually be treated successfully. This condition is diagnosed based on a physical exam, your symptoms, and tests to determine the cause. Treatment varies depending on the cause, and may include medicines, hormone therapy, surgery, or vacuum pump. You may need follow-up visits to make sure that you are using your medicines or devices correctly. Get help right away if you are taking or injecting medicines and you have an erection that lasts longer than 4 hours. This information is not intended to replace advice given to you by your health care provider. Make sure you discuss any questions you have with your health care provider. Document Released: 05/31/2001 Document Revised: 05/16/2018 Document Reviewed: 06/19/2017 [employer] Patient Education 2020 [employer]. Follow Up Care 06/13/2022 10:23:42 With:Tamar GOVEA MD, URL Address: [facility] [address], [place] [address]- When: Unknown [facility] Evaluation + Plan note Future Appointments Appointment Date:07/30/2022 10:15:00 AM Scheduled Provider: Location:[facility] Appointment Type:URO Nurse Visit Appointment Date:10/08/2022 10:45:00 AM Scheduled Provider:Tamar GOVEA MD Location:[facility] Appointment Type:URO Office Visit Diagnostic Tests PendingProlactin Level 07/16/22Testosterone Level Total 07/16/22Testosterone Level Total 07/16/22 [facility] Evaluation + Plan note Future Appointments Appointment Date:10/08/2022 10:45:00 AM Scheduled Provider:Tamar GOVEA MD Location:[facility] Appointment Type:URO Office Visit Diagnostic Tests PendingTestosterone Level Total 08/31/22 [facility] Evaluation + Plan note Future Appointments Appointment Date:11/09/2022 08:00:00 AM Scheduled Provider:Tamar GOVEA MD Location:[facility] Appointment Type:URO Office Visit [facility] Evaluation + Plan note Future Appointments Appointment Date:12/11/2022 08:30:00 AM Scheduled Provider: Location:[facility] Appointment Type:URO Nurse Visit Diagnostic Tests PendingTestosterone Level Total 11/09/22 [facility] Evaluation + Plan note Future Appointments Appointment Date:01/15/2023 03:30:00 PM Scheduled Provider: Location:[facility] Appointment Type:URO Nurse Visit [facility] Evaluation + Plan note Future Appointments Appointment Date:02/13/2023 03:30:00 PM Scheduled Provider: Location:[facility] Appointment Type:URO Nurse Visit [facility] Evaluation + Plan note Future Appointments Appointment Date:03/13/2023 03:30:00 PM Scheduled Provider: Location:[facility] Appointment Type:URO Nurse Visit Appointment Date:04/09/2023 03:30:00 PM Scheduled Provider: Location:[facility] Appointment Type:URO Nurse Visit [facility] Evaluation + Plan note Future Appointments Appointment Date:04/26/2023 09:30:00 AM Scheduled Provider:Tamar GOVEA MD Location:[facility] Appointment Type:URO Office Visit Appointment Date:05/07/2023 02:30:00 PM Scheduled Provider: Location:[facility] Appointment Type:URO Nurse Visit [facility] Evaluation note Diagnosis Left flank pain- Primary Abdominal pain, unspecified site Thoracic back pain, unspecified back pain laterality, unspecified chronicity [facility] Diagnosis Diarrhea of presumed infectious origin- Primary Cough, unspecified type Mild intermittent asthma without complication (CMS/HCC) Immunosuppression (CMS/HCC) Psoriasis of scalp (CMS/HCC) [facility] noteNo assessment information availableRegency Hospital Company Work Phone: Evaluation note* Diagnosis Effusion of bursa of right knee- Primary Acute pain of right knee [facility]* Diagnosis Sprain of right knee, unspecified ligament, initial encounter- Primary Acute pain of right knee [facility]* Diagnosis Rupture of anterior cruciate ligament of right knee, subsequent encounter- Primary Acute pain of right knee New tear of anterior cruciate ligament of right knee, initial encounter [facility] Narrative No data available for this section [facility] Hospital Discharge instructions No data available for this section [facility] progress note No data available for this section [facility] Summary Purpose Family History No Family History Records FoundNo Family History Records Found No data available for this section No data available for this section No Family History Records FoundNo Family History Records FoundNo Family History Records Found Advance Directives No Advanced Directives Records Found Advance Directive Response Recorded Date/ Time Advance Directives No June 20, 2019 11:53am Chief Complaint and Reason for Visit Chief Complaint Admit Date n/v/d, abd pain August 21, 2024 9:36 am Additional Source Comments (unrecognized sect ion and content) No Status Records FoundNo Status Records FoundNo Status Records FoundNo Status Records FoundNo Status Records Found INFORMATION SOURCE (unrecogn ized section and content) DATE CREATED AUTHOR 06/08/2022 [facility] Specialist DATE CREATED AUTHOR AUTHOR'S ORGANIZ ATION 10/26/2022 [facility] DATE CREATED AUTHOR AUTHOR'S ORGANIZ ATION 09/12/2024 [facility] DATE CREATED AUTHOR AUTHOR'S ORGANIZ ATION 01/06/2025 [facility] EPIC DATE CREATED AUTHOR AUTHOR'S ORGANIZ ATION 01/19/2025 [facility] Patient Care team informatio n (unrecognized section and content) Air Condition[employer] Equipment Mechanic Relationship Specialty Start Date End Date Amparo Jsoe DO [address] [place] [address] PCP - General Family Medicine 10/23/22 [employer] Condition[employer] Equipment Mechanic Relationship Specialty Start Date End Date Amparo Jose DO [address] [place] [address] PCP - General Family Medicine 10/23/22 Air Conditioning Equipment Mechanic Relationship Specialty Start Date End Date Amparo Jose DO [address] [place] [address] PCP - General Family Medicine 10/23/22 Air Conditioning Equipment Mechanic Relationship Specialty Start Date End Date Amparo Jose DO [address] [place] [address] PCP - General Family Medicine 10/23/22 Team Status: Active Member Role Status Dates Amparo Jose DO Primary Care Provider Active Team Status: Inactive Member Role Status Dates Amparo Jose DO Primary Care Provider Active Start: August 21, 2024 End: August 21, 2024 Tamar Villanueva DO Emergency Provider Active St art: August 21, 2024 End: August 21, 2024 Air Conditioning Equipment Mechanic Relationship Specialty Start Date End Date Amparo Jose DO [address] [place] [address] PCP - General Family Medicine 10/23/22 Air Conditioning Equipment Mechanic Relationship Specialty Start Date End Date Amparo Jose DO [address] [place] [address] PCP - General Family Medicine 10/23/22 Air Conditioning Equipment Mechanic Relationship Specialty Start Date End Date Amparo Jose DO [address] [place] [address] PCP - General Family Medicine 10/23/22 Air Conditioning Equipment Mechanic Relationship Specialty Start Date End Date Amparo Jose DO [address] [place] [address] PCP - General Family Medicine 10/23/22 Air Conditioning Equipment Mechanic Relationship Specialty Start Date End Date Amparo Jose DO [address] [place] [address] PCP - General Family Medicine 10/23/22 Reason for Visit (unrecogniz ed section and content) Reason Comments Asthma Reason Comments Stool Color Change Reason Comments Follow-up Reason Onset Date Comments Results 12/21/2024 Reason Comments Pain Specialty Diagnoses / Procedures Referred By Gregor walter Referred To Contact Orthopaedic Surgery Diagnoses Acute pain of right knee New tear of anterior cruciate ligament of right knee, initial encounter Amparo Jose, DO [address] [place] [address] Phone: tel: fax: Rick Jean, DO [address] [place], [place] Phone: tel: fax: Referral ID Status Reason Start Date Expiration Date V isits Requested Visits Authorized [id number] Closed Specialty Services Required 12/21/2024 06/19/2025 1 1 Goals (unrecognized section and content) Goals may be documented in a n alternate section FOR RECORDS PERTAINING TO PATIENTS WHO ARE OR HAVE BEEN ENROLLED IN A CHEMICAL DEPENDENCY/SUBSTANCEABUSE PROGRAM, SOME INFORMATION MAY BE OMITTED. This clinical summary was aggregated from multiple sources. Caution should be exercised in using it in the provision of clinical care. This summary normalizes information from multiple sources, and as a consequence, information in this document may materially change the coding, format and clinical context of patient data. In addition, data may be omitted in some cases. CLINICAL DECISIONS SHOULD BE BASED ON THE PRIMARY CLINICAL RECORDS. [facility]. provides no warranty or guarantee of the accuracy or completeness of information in this document.
--- NOTE | 2025-01-21 22:04 | CT_ITS ---
The [address] [address] Patient Name: MAYLIN HICKEY MRN: [id number] date: 2000 Sex: M Assigned Patient Location: ER Current Patient Location: Accession/Order Number: [id number] Exam Date: 01/21/2025 23:06 Report Date: 01/21/2025 23:18 At the request of: DEBBIE MERRITT DO Procedure: CT angio abdomen pelvis CT angiogram abdomen and pelvis with contrast CLINICAL HISTORY: Pain, nausea and vomiting COMPARISON: None TECHNIQUE: CT angiogram images were obtained through the abdomen and pelvis. 3-D reconstructions were performed. This CT exam was performed using one or more following dose reduction techniques: Automated exposure control, adjustment of the mA and/or kV according to patient size, or use of iterative reconstruction technique. FINDINGS: Angiographic phase images were obtained. Lungs are clear. Diffuse low attenuation liver can be seen with fatty infiltration. Otherwise the liver, spleen, adrenals, kidneys, pancreas unremarkable. Mild retained stool the colon. No bowel obstruction. Mild scattered colonic diverticulosis. Bladder prostate unremarkable. There are scattered mesenteric lymph nodes identified which are nonspecific. There are lymph nodes identified along the left colon noted could be reactive Aorta, renal, SMA, ABEBE, and celiac arteries widely patent. Bilateral iliac vessels are widely patent. No narrowing or stricturing identified. No free air or free fluid. No suspicious osseous lesion. CT/CT angio abdomen pelvis IMPRESSION: Only angiographic phase images were obtained. No definite etiology for the reported symptoms identified this examination. Nonspecific lymph nodes identified. These could be reactive. Consider six-month follow-up to document stability or resolution. Impression dictated by: Agustín Drake M.D. 01/21/2025 11:18 PM Dictation Location: [place] [address] Electronically authenticated by: [id number] Y Date: 01/21/2025 23:18
[2025-01-21 22:21] LABS: Hematocrit 48.0 % (42.0-54.0); Hemoglobin 16.8 g/dL (14.0-18.0); Mean Corpuscular HGB Conc 35.0 g/dL (29.9-35.2); Mean Corpuscular Hemoglobin 29.5 pg (25.9-34.0); Mean Corpuscular Volume 84.2 fL (80.0-94.0); Platelet Count 595 10^3/uL (150-450); Red Blood Count 5.70 10^6/uL (4.70-6.10); White Blood Count 12.0 10^3/uL (4.0-11.0)
[2025-01-21 22:24] LABS: Alanine Aminotransferase 18 U/L (16-63); Albumin Globulin Ratio 0.7; Albumin Level 3.9 g/dL (3.4-5.0); Alkaline Phosphatase 58 U/L (46-116); Anion Gap 25.1; Aspartate Amino Transferase 22 U/L (15-37); Blood Urea Nitrogen 20.0 mg/dL (7.0-18.0); Calcium 10.4 mg/dL (8.5-10.1); Carbon Dioxide 18.6 mmol/L (21.0-32.0); Chloride 97 mmol/L (98-107); Estimated GFR (African America >60 (>=60 mL/min/1.73m^2); Estimated GFR (Non-African Ame >60 (>=60 mL/min/1.73m^2); Globulin 5.6 g/dL; Glucose 101 mg/dL (74-106); Lipase 19.0 U/L (16.0-77.0); Magnesium 1.8 mg/dL (1.8-2.4); Potassium 3.7 mmol/L (3.5-5.1); Sodium 137 mmol/L (136-145); Total Protein 9.5 g/dL (6.4-8.2)
[2025-01-21 22:29] LABS: INR 1.16; Partial Thromboplastin Time 28.3 sec (22.3-36.2); Prothrombin Time 12.1 sec (9.0-11.6)
[2025-01-21] MEDS: PANTOPRAZOLE SODIUM 40 MG VIAL 80 MG IV (22:33)
[2025-01-21] MEDS: 0.9 % SODIUM CHLORIDE 1,000 ML 1000 ML IV (22:36)
[2025-01-21 22:40] LABS: Basophils Abs Manual 0.12 10^3/uL (0.00-0.10); Basophils Percent Manual 1.0 % (0.2-2.0); Eosinophils Absolute Manual 0.36 10^3/uL (0.00-0.70); Eosinophils Percent Manual 3.0 % (0.9-7.0); Lymphocytes Absolute Manual 3.48 10^3/uL (1.20-3.80); Lymphocytes Percent Manual 29.0 % (20.5-60.0); Monocytes Absolute Manual 2.52 10^3/uL (0.30-0.80); Monocytes Percent Manual 21.0 % (1.7-12.0); Segmented Neut Absolute Manual 5.52 10^3/uL (1.4-6.5); Segmented Neutrophils % Manual 46.0 (43.0-75.0)
[2025-01-22] VITALS (27 sets, daily range): BP systolic 117–139; BP diastolic 82–95; PULSE 91–127; O2SAT 96–99
--- NOTE | 2025-01-22 00:33 | ED.GENADUL1 ---
HPI HPI - General Adult General Chief complaint: GI Bleed Stated complaint: BLEEDING IN STOOL/VOMITING Time Seen by Provider: 01/21/25 21:49 Source: patient Mode of arrival: walk-in History of Present Illness HPI narrative: Patient is a 24-year-old healthy male with no significant medical history presenting to the emergency department for concerns of GI bleed. Patient states that over the last month he has been dealing with mild bright red blood per rectum, which is nonpainful. He states that he has yet to see a doctor for evaluation. However, over the last couple hours, he has had increasing amount of rectal bleeding that he describes as large, concerning amount . Additionally, he has been nauseous, has had decreased p.o. intake, and has had copious amounts of dark emesis. The patient denies chronic NSAID use. He denies history of alcohol use. No history or family history of inflammatory bowel diseases. No history of anal fissures or hemorrhoids. He denies any pain with defecation. Has some abdominal cramping, but no significant pain. Denies any chest pain or shortness of breath. No fevers or chills. Of note, patient recently had a right ACL repair a few weeks ago and is in a knee immobilizer. Currently taking aspirin. Related Data Allergies Allergy/AdvReac Type Severity Reaction Status Date / Time No Known Drug Allergies Allergy Verified 01/21/25 21:39 Review of Systems ROS Status of ROS 10 or more systems reviewed and unremarkable except as noted in history and below PFSH PFSH Social History Little interest or pleasure in doing things: not at all Feeling down, depressed, or hopeless: not at all Exam Narrative Exam Narrative: CONSTITUTIONAL: Patient appears uncomfortable, actively vomiting large amounts of coffee-ground emesis into a basin, answering questions appropriately SKIN: Cool, clammy, diaphoretic. EYES: No conjunctival pallor. No scleral icterus. EARS, NOSE, THROAT: Moist oral mucosa. RESPIRATORY: Clear to auscultation bilaterally, no wheezes, crackles, or stridor, no use of accessory muscles CARDIOVASCULAR: Tachycardic rate and regular rhythm. There is no S3, S4, murmur, rub. GASTROINTESTINAL: Abdomen was soft, non-tender, and non-distended. There is no guarding or rebound tenderness RECTAL: Rectal examination performed with a female nurse recovery auditor demonstrated dried blood around the rectum with no active bleeding. There were no external hemorrhoids or anal fissures visualized. Digital rectal examination was unremarkable without palpable hemorrhoids. There is no tenderness with TEO. MUSCULOSKELETAL: Right knee immobilizer in place. No calf tenderness or peripheral edema. NEUROLOGIC: Patient is awake and alert. Facies were symmetrical. Constitutional Vital Signs, click to edit/add: Last Vital Signs Temp 98.2 F 01/21/25 21:34 Pulse 97 H 01/22/25 00:40 Resp 20 01/22/25 00:40 BP 117/84 01/22/25 00:30 Pulse Ox 96 01/22/25 00:40 O2 Del Method Room Air 01/21/25 21:34 Course Vital Signs Vital signs: Vital Signs Temperature 98.2 F 01/21/25 21:34 Pulse Rate 145 H 01/21/25 21:34 Respiratory Rate 22 H 01/21/25 21:34 Blood Pressure 115/82 01/21/25 21:34 Pulse Oximetry 97 01/21/25 21:34 Oxygen Delivery Method Room Air 01/21/25 21:34 Temperature 98.2 F 01/21/25 21:34 Pulse Rate 97 H 01/22/25 00:40 Respiratory Rate 20 01/22/25 00:40 Blood Pressure 117/84 01/22/25 00:30 Pulse Oximetry 96 01/22/25 00:40 Oxygen Delivery Method Room Air 01/21/25 21:34 Medical Decision Making MDM Narrative Medical decision making narrative: Patient is a previously healthy 24-year-old male presenting to the emergency department with a 1 month history of rectal bleeding, acutely worsening tonight. Vital signs on arrival are significant for tachycardia, otherwise were within normal limits. He is afebrile, hemodynamically stable with a normal blood pressure. On physical examination, the patient is cool, clammy, and appears quite uncomfortable/nauseous. He subsequently vomits a large volume of coffee-ground emesis into a basin. Rectal examination demonstrated no active bleeding. His abdomen is soft, nontender, non-peritoneal. He has pink conjunctiva, does not appear to be significantly anemic. Differential diagnosis includes upper/lower GI bleed secondary to etiologies such as gastric ulcer, inflammatory bowel disease, internal hemorrhoids, diverticulosis. Though he was vomiting, he is protecting his airway adequately. IV was established and laboratory studies were obtained. CT angiogram of the abdomen/pelvis was ordered. He was given 80 mg IV Protonix and 4 mg IV Zofran. He was given 1 L bolus normal saline. CTA abdomen/pelvis independently reviewed/interpreted by myself demonstrated no active bleeding and was otherwise unremarkable. On reevaluation, patient states he feels improved. He has not vomited in over 30 minutes. Repeat set of vital signs demonstrated resolution of his tachycardia, he remains hemodynamically stable. I do believe he warrants admission to the hospital for GI evaluation, possible endoscopy/colonoscopy. I did discuss the patient with GI physician, Dr. Henry, who accepted the patient. I discussed the patient with hospitalist, Dr. Begum, who also accepted the patient. Patient will be transferred to [facility] in fair condition. Differential Diagnosis Differential Diagnosis: Upper GI bleed, diverticulosis, IBD, gastric ulcer Medical Records Medical records reviewed: Yes I reviewed the patient's medical records Lab Data Lab results reviewed: Yes I reviewed the patient's lab results Labs: Lab Results 01/21/25 Range/Units 21:45 WBC 12.0 H (4.0-11.0) 10^3/uL RBC 5.70 (4.70-6.10) 10^6/uL Hgb 16.8 (14.0-18.0) g/dL Hct 48.0 (42.0-54.0) % MCV 84.2 (80.0-94.0) fL MCH 29.5 (25.9-34.0) pg MCHC 35.0 (29.9-35.2) g/dL RDW 12.4 (11.0-15.0) % Plt Count 595 H (150-450) 10^3/uL MPV 8.7 L (9.5-13.5) fL Seg Neuts % (Manual) 46.0 (43.0-75.0) Lymphocytes % (Manual) 29.0 (20.5-60.0) % Monocytes % (Manual) 21.0 H (1.7-12.0) % Eosinophils % (Manual) 3.0 (0.9-7.0) % Basophils % (Manual) 1.0 (0.2-2.0) % Neutrophils # (Manual) 5.52 (1.4-6.5) 10^3/uL Lymphocytes # (Manual) 3.48 (1.20-3.80) 10^3/uL Monocytes # (Manual) 2.52 H (0.30-0.80) 10^3/uL Eosinophils # (Manual) 0.36 (0.00-0.70) 10^3/uL Basophils # (Manual) 0.12 H (0.00-0.10) 10^3/uL PT 12.1 H (9.0-11.6) sec INR 1.16 APTT 28.3 (22.3-36.2) sec Sodium 137 (136-145) mmol/L Potassium 3.7 (3.5-5.1) mmol/L Chloride 97 L (98-107) mmol/L Carbon Dioxide 18.6 L (21.0-32.0) mmol/L Anion Gap 25.1 BUN 20.0 H (7.0-18.0) mg/dL Creatinine 1.15 (0.70-1.30) mg/dL Est GFR ( Amer) >60 (>=60 mL/min/1.73m^2) Est GFR (Non-Af Amer) >60 (>=60 mL/min/1.73m^2) BUN/Creatinine Ratio 17.4 Glucose 101 (74-106) mg/dL Calcium 10.4 H (8.5-10.1) mg/dL Magnesium 1.8 (1.8-2.4) mg/dL Total Bilirubin 0.8 (0.2-1.0) mg/dL AST 22 (15-37) U/L ALT 18 (16-63) U/L Alkaline Phosphatase 58 (46-116) U/L Total Protein 9.5 H (6.4-8.2) g/dL Albumin 3.9 (3.4-5.0) g/dL Globulin 5.6 g/dL Albumin/Globulin Ratio 0.7 Lipase 19.0 (16.0-77.0) U/L Blood Type O Positive Antibody Screen Negative Imaging Data CT scan - abdomen: Attestation: I personally reviewed and interpreted this imaging study as follows: Radiologist's impression: ITS Impressions Abdomen/Pelvis CTA 01/21/25 22:04 IMPRESSION: Only angiographic phase images were obtained. No definite etiology for the reported symptoms identified this examination. Nonspecific lymph nodes identified. These could be reactive. Consider six-month follow-up to document stability or resolution. Impression dictated by: Agustín Drake M.D. 01/21/2025 11:18 PM Dictation Location: [place] Electronically authenticated by: [id number] Y Date: 01/21/2025 23:18 Discharge Plan Discharge Chief Complaint: GI Bleed Clinical Impression: Upper gastrointestinal hemorrhage Patient Disposition: [facility] Time of Disposition Decision: 00:52 Discharge Location: [facility] [place] Condition: Fair Mode of Transportation: EMS
== END 2025-01-22 04:52 | disposition short-term general hospital (02) ==
PROVIDERS: Emergency Provider Student in an Organized Health Care Education/Training Program; PCP Family Medicine
DX: K92.2 Gastrointestinal hemorrhage, unspecified (principal); K92.1 Melena; R11.0 Nausea
CPT/HCPCS: 36415; 74174; 80053; 83690; 83735; 85007; 85027; 85610; 85730; 86850; 86900; 86901; 96374; 96375; 96376; 99285; J2405; Q9967